=== PATIENT | female | born 2000 | race Caucasian/White ===

== ENCOUNTER 2022-01-29 14:41 | Emergency (ER) | payer OTHER, SELFPAY ==
--- NOTE | ~2022-01-29 | XR_ITS ---
EXAMINATION: XR chest 2V 01/29/2022 16:51 INDICATION: Shortness of breath PROCEDURE: 2 view chest COMPARISON: No prior studies for comparison. FINDINGS: The lungs are clear. The cardiomediastinal silhouette is within normal limits. There are no pleural effusions. There is no pneumothorax suspected. IMPRESSION: 1: NO ACUTE CARDIOPULMONARY DISEASE. Reviewed, dictated and finalized at location A.
--- NOTE | ~2022-01-29 | CT_ITS ---
EXAMINATION: CTA chest PE protocol DATE: 01/29/2022 19:20 CDT INDICATION: Elevated d-dimer. Chest pain and shortness of breath. Tachycardia. TECHNIQUE: Computed tomographic angiography (CTA) of the chest was performed with 100 mL Omnipaque-35 0 intravenous contrast. The dose-length product was 809.56 mGy-cm. Maximum intensity projection 3D-re constructions of the aorta and other arteries were constructed by the technologist on a separate work station. COMPARISON: None. FINDINGS: Heart size is normal. No significant pleural or pericardial effusion. No thoracic lymphaden opathy. The upper abdomen is unremarkable. Study is technically adequate without evidence for pulmona ry embolism. No endobronchial lesions. No pneumothorax. No focal airspace disease. Mild thoracic spon dylosis. IMPRESSION: 1. No acute cardiopulmonary disease. No evidence for pulmonary embolism. Reviewed, dictated and finalized at location A.
[2022-01-29 15:13] VITALS: BP 149/79; PULSE 98; RESP 20; TEMP 36.6; O2SAT 100
--- NOTE | 2022-01-29 16:41 | ECG_ITS ---
Measurements Intervals [place] Rate: 70 P: 37 IN: 121 QRS: 35 QRSD: 97 T: 29 QT: 377 QTc: 407 Interpretive Statements SINUS RHYTHM WITH SINUS ARRHYTHMIA BASELINE ARTIFACT- I, III, AVR, AVL, AVF, V1 NORMAL ECG NO PREVIOUS ECG AVAILABLE FOR COMPARISON Electronically Signed On 01-29-2022 21:07:33 CDT by Franck Donnelly D.O.
--- NOTE | 2022-01-29 16:42 | ED.SOB ---
HPI - SOB/Dyspnea General Chief Complaint: Shortness of Breath/Dyspnea Stated Complaint: sob Time Seen by Provider: 01/29/22 16:14 History of Present Illness HPI Narrative: 21-year-old female here for evaluation of shortness of breath over the past couple days. Patient states that she feels winded on minimal exertion, which is new for her. Additionally notes a slight discomfort in the center of her chest and feels lightheaded. She has never had a symptom like this in the past. She denies hormone use, recent surgery or long travel or trips, no hemoptysis, leg swelling or pain. Patient is previously healthy, denies past medical history. Review of Systems Review of Systems: Gen: Denies fevers or chills Eyes: Denies eye pain or visual change ENT: Denies congestion Respiratory: reports shortness of breath. CV: Denies chest pain or palpitations GI: Denies abdominal pain nausea, emesis or diarrhea denies burning, urgency, frequency or hematuria Musculoskeletal: Denies back pain or muscle pain Neuro: Denies numbness, tingling, weakness or focal weakness Skin: Denies rash Except as documented, all other systems reviewed and negative Exam Narrative: APPEARANCE: Well appearing, no pain in distress, well-nourished. Head: Normocephalic and atraumatic. EYES: PERRLA/EOMI, conjunctivae clear NOSE: No nasal drainage EARS: External ear normal in appearance THROAT: Oropharynx is clear. Mucous membranes are moist. NECK: Supple. No adenopathy, no masses. RESPIRATORY: Airway patent, respirations nonlabored. Clear to auscultation bilaterally, no rales, rhonchi, wheezing. CARDIOVASCULAR: Regular rate and rhythm without murmurs, rubs, or gallops. ABDOMINAL: Normoactive bowel sounds. Soft, nontender, nondistended. No rebound tenderness or guarding. MUSCULOSKELETAL: no calf tenderness. Extremities are warm and well-perfused. Moves all extremities well. No edema. NEURO: Normal speech. No focal neurologic deficits. SKIN: Skin is warm and dry. No rashes. PSYCHIATRIC: Normal affect/mood. Course Vital Signs Vital signs: Vital Signs Temperature 97.9 F 01/29/22 15:13 Pulse Rate 98 01/29/22 15:13 Respiratory Rate 20 01/29/22 15:13 Blood Pressure 149/79 H 01/29/22 15:13 Pulse Oximetry 100 01/29/22 15:13 Oxygen Delivery Room Air 01/29/22 15:13 Temperature 97.9 F 01/29/22 15:13 Pulse Rate 98 01/29/22 15:13 Respiratory Rate 20 01/29/22 15:13 Blood Pressure 149/79 H 01/29/22 15:13 Pulse Oximetry 100 01/29/22 15:13 Oxygen Delivery Room Air 01/29/22 19:01 MDM - SOB/Dyspnea MDM Narrative Medical decision making narrative: 21 year old female here for evaluation of SOB, chest pain and lightheadedness for the past day. Here she is nontoxic-appearing, her pulse is 98. Her heart and lungs are clear to auscultation. CXR is clear. EKG is non-ischemic. Troponin negative. Dimer slightly elevated; follow up CTA without evidence of PE. She has no leg swelling/pain to suggest DVT. She has a slight leukocytosis to 11.3 but patient's symptoms do not appear consistent with infection. This is likely an anxiety-type reaction as patient has many stressors in her life currently. No SI/HI. Encouraged her to follow up with her PCP this following week to discuss therapeutic options. Discussed return precautions and she voiced understanding. Lab Data Result diagrams: 01/29/22 17:02 01/29/22 17:02 Labs: Lab Results 01/29/22 01/29/22 01/29/22 Range/Units 17:02 17:02 17:02 WBC 11.3 H (4.5-10.0) K/mm3 RBC 5.06 (4.2-5.4) M/mm3 Hgb 14.7 (12.0-15.0) g/dL Hct 45.5 (37.0-47.0) % MCV 89.9 (80-100) fl MCH 29.1 (26-34) pg MCHC 32.3 (32-36) g/dl RDW 12.4 (11.5-14.5) % Plt Count 323 (150-375) k/mm3 MPV 11.1 H (7.4-10.4) fl Immature Gran % (Auto) 0.4 (0-0.5) % Neut % (Auto) 61.5 (45.5-73.1) % Lymph % (Auto) 28.2 (18.3-44.2) % [place] % (Auto) 8.
[2022-01-29 17:10] LABS: Basophils Absolute Auto 0.1 K/mm3 (0.0-0.1); Basophils Percent Auto 0.6 % (0.2-1.2); Eosinophils Absolute Auto 0.1 K/mm3 (0-0.3); Eosinophils Percent Auto 1.1 % (0-4.4); Hematocrit 45.5 % (37.0-47.0); Hemoglobin 14.7 g/dL (12.0-15.0); Immature Granulocyte Absolute 0.04 K/mm3 (0.00-0.031); Immature Granulocyte Percent A 0.4 % (0-0.5); Lymphocytes Absolute Auto 3.19 K/mm3 (0.9-3.2); Lymphocytes Percent Auto 28.2 % (18.3-44.2); Mean Corpuscular HGB Conc 32.3 g/dl (32-36); Mean Corpuscular Hemoglobin 29.1 pg (26-34); Mean Corpuscular Volume 89.9 fl (80-100); Mean Platelet Volume 11.1 fl (7.4-10.4); Monocytes Absolute Auto 0.9 K/mm3 (0.1-0.6); Monocytes Percent Auto 8.2 % (2.6-8.5); Neutrophils Percent Auto 61.5 % (45.5-73.1); Platelet Count Result 323 k/mm3 (150-375); Red Blood Count 5.06 M/mm3 (4.2-5.4); Red Cell Distribution Width 12.4 % (11.5-14.5); White Blood Count 11.3 K/mm3 (4.5-10.0)
[2022-01-29 17:24] LABS: D Dimer 0.68 ug/mL (<0.48)
[2022-01-29 17:35] LABS: Anion Gap 17 mmol/L (8-16); Blood Urea Nitrogen 13 mg/dL (7-17); Calcium 9.5 mg/dL (8.4-10.2); Carbon Dioxide 23 mmol/L (22-30); Chloride 103 mmol/L (98-107); Estimated CRCL calculation 95 ml/min; Estimated Glomerular Filt Rate > 60; Glucose 84 mg/dL (65-110); Potassium 3.9 mmol/L (3.4-5.0); Sodium 143 mmol/L (137-145)
[2022-01-29 19:00] LABS: Beta HCG Quantitative < 2.39 mIU/ML
[2022-01-29 19:41] LABS: Troponin I < 0.012 ng/mL (0.000-0.034)
== END 2022-01-29 19:54 | disposition home or self-care (01) ==
PROVIDERS: Physician Assistant; Emergency Provider Emergency Medicine; PCP Internal Medicine
DX: R42 Dizziness and giddiness (principal)
CPT/HCPCS: 36415; 71046; 71275; 80048; 81025; 84484; 84702; 85025; 85380; 93005; 99284; Q9967

== ENCOUNTER 2022-02-23 22:05 | Emergency (ER) | payer OTHER, SELFPAY ==
[2022-02-23 22:15] VITALS: BP 152/100; PULSE 69; RESP 20; TEMP 36.9; O2SAT 100
--- NOTE | 2022-02-23 22:57 | ED.EXTPRO ---
HPI - Extremity Problem General Chief complaint: Extremity Problem,Nontraumatic Stated complaint: Right leg pain Time Seen by Provider: 02/23/22 22:23 History of Present Illness HPI Narrative: Patient is a 21-year-old female who presents ER with cramping to her right calf. Ongoing over the last couple days. No worse today. Reports intermittent tingling in the foot. No trauma. No swelling. Was seen in the ER on 01/29/2022 and had an elevated D-dimer. At that time she had no lower extremity discomfort but did have some shortness of breath. CTA was negative for PE. Symptoms may have been attributed to anxiety. Patient reports she started having some tingling in her fingertips tonight which prompted her to come in. No chest pain or chest pressure or difficulty breathing. No syncope. Family member with history of PE and became concerned. Related Data Allergies Allergy/AdvReac Type Severity Reaction Status Date / Time No Known Allergies Allergy Verified 02/23/22 22:06 Review of Systems Review of Systems: All systems reviewed & are unremarkable except as noted in HPI and below Constitutional: Constitutional: Denies chills and Denies fever(s) Cardiovascular: Cardiovascular: Denies chest pain and Denies rapid heart rate Respiratory: Respiratory: Denies cough and Denies dyspnea Musculoskeletal: Musculoskeletal: Denies arthralgias and Denies joint swelling Comments: Right calf pain Neurologic: Denies syncope, Denies focal weakness and Denies numbness Comments: Tingling PMFSH Past Medical History Medical History (Updated 02/24/22 @ 01:06 by Kyle Martinez MD) Healthy female adult Surgical History Surgical History (Updated 02/23/22 @ 23:02 by Kyle Martinez MD) No pertinent past surgical history Social History Social History (Updated 02/23/22 @ 23:02 by Kyle Martinez MD) Smoking status: Never smoker Exam Narrative: GENERAL: Well-appearing, well-nourished, and in no acute distress. HEAD: Normocephalic, atraumatic. CHEST: Clear to auscultation. No respiratory distress. HEART: Regular rate and rhythm. Normal peripheral pulses. ABDOMEN: Soft, nontender, nondistended. EXTREMITIES: Normal range of motion. No edema. Negative Homans' sign. Patient reports positive carpal tunnel compression test bilaterally. SKIN: Warm, dry, no rash. NEURO: No focal deficits. Sharp touch intact in lower extremities as well as hands. Alert and oriented x3. PSYCH: Normal mood and affect. Course Course Emergency Course: Discussed case with Dr. Lamb. Discussed the patient received Lovenox and is getting ultrasound in the morning for which she should be looking out for the results. Verbalized he will ensure patient does not have a DVT but if she does we will start anticoagulation. Patient aware of this treatment plan. Vital Signs Vital signs: Vital Signs Temperature 98.4 F 02/23/22 22:15 Pulse Rate 69 02/23/22 22:15 Respiratory Rate 20 02/23/22 22:15 Blood Pressure 152/100 H 02/23/22 22:15 Pulse Oximetry 100 02/23/22 22:15 Oxygen Delivery Room Air 02/23/22 22:15 Temperature 98.4 F 02/23/22 22:15 Pulse Rate 88 02/24/22 01:51 Respiratory Rate 18 02/24/22 01:51 Blood Pressure 138/77 02/24/22 01:51 Pulse Oximetry 98 02/24/22 01:51 Oxygen Delivery Room Air 02/23/22 22:15 MDM - Extremity (Nontraumatic) Lab Data Result diagrams: 02/23/22 23:55 02/23/22 23:55 Labs: Lab Results 02/23/22 02/23/22 02/23/22 Range/Units 23:55 23:55 23:58 WBC 9.9 (4.5-10.0) K/mm3 RBC 4.97 (4.2-5.4) M/mm3 Hgb 14.4 (12.0-15.0) g/dL Hct 44.0 (37.0-47.0) % MCV 88.5 (80-100) fl MCH 29.0 (26-34) pg MCHC 32.7 (32-36) g/dl RDW 12.3 (11.5-14.5) % Plt Count 305 (150-375) k/mm3 MPV 10.9 H (7.4-10.4) fl Immature Gran % (Auto) 0.3 (0-0.5) % Neut % (Auto) 58.0 (45.5-73.1) % Lymph % (Auto) 33.3
[2022-02-24 00:05] LABS: Basophils Absolute Auto 0.1 K/mm3 (0.0-0.1); Basophils Percent Auto 0.7 % (0.2-1.2); Eosinophils Absolute Auto 0.1 K/mm3 (0-0.3); Hemoglobin 14.4 g/dL (12.0-15.0); Immature Granulocyte Absolute 0.03 K/mm3 (0.00-0.031); Immature Granulocyte Percent A 0.3 % (0-0.5); Lymphocytes Percent Auto 33.3 % (18.3-44.2); Mean Corpuscular HGB Conc 32.7 g/dl (32-36); Mean Corpuscular Volume 88.5 fl (80-100); Mean Platelet Volume 10.9 fl (7.4-10.4); Monocytes Absolute Auto 0.7 K/mm3 (0.1-0.6); Monocytes Percent Auto 6.7 % (2.6-8.5); Neutrophils Absolute Auto 5.8 K/mm3 (1.3-6.7); Platelet Count Result 305 k/mm3 (150-375); Red Blood Count 4.97 M/mm3 (4.2-5.4); Red Cell Distribution Width 12.3 % (11.5-14.5); White Blood Count 9.9 K/mm3 (4.5-10.0)
[2022-02-24 00:17] LABS: INR 1.1; Prothrombin Time 14.1 Seconds (11.1-14.7)
[2022-02-24 00:18] LABS: Partial Thromboplastin Time 33.5 SECONDS (22.3-36.8)
[2022-02-24 00:23] LABS: D Dimer 0.83 ug/mL (<0.48)
[2022-02-24 00:25] LABS: Alanine Aminotransferase 30 U/L (6-35); Albumin Level 4.8 g/dL (3.5-5.1); Alkaline Phosphatase 53 U/L (38-126); Anion Gap 14 mmol/L (8-16); Aspartate Amino Transferase 27 U/L (14-36); Bilirubin,Total 0.4 mg/dL (0.2-1.3); Blood Urea Nitrogen 14 mg/dL (7-17); Calcium 9.4 mg/dL (8.4-10.2); Carbon Dioxide 27 mmol/L (22-30); Chloride 99 mmol/L (98-107); Estimated CRCL calculation 102 ml/min; Estimated Glomerular Filt Rate > 60; Glucose 103 mg/dL (65-110); Potassium 3.8 mmol/L (3.4-5.0); Sodium 140 mmol/L (137-145)
[2022-02-24] MEDS: ENOXAPARIN 120 MG/0.8 ML SYRINGE 111 MG SUB-Q (01:28)
[2022-02-24 01:51] VITALS: BP 138/77; PULSE 88; RESP 18; O2SAT 98
== END 2022-02-24 01:54 | disposition home or self-care (01) ==
PROVIDERS: Emergency Provider Emergency Medicine; PCP Internal Medicine
DX: M79.661 Pain in right lower leg (principal)
CPT/HCPCS: 36415; 80053; 85025; 85380; 85610; 85730; 96372; 99283; J1650

== ENCOUNTER 2022-02-24 06:50 | Outpatient (CLI) | payer OTHER, SELFPAY ==
--- NOTE | ~2022-02-24 | US_ITS ---
EXAMINATION: US venous doppler LE RT DATE: 02/24/2022 07:28 INDICATION: Right lower limb pain TECHNIQUE: Grayscale ultrasound images without and with compression and Doppler ultrasound images of the right lower extremity veins were obtained. COMPARISON: None. FINDINGS: The visualized portions of right common femoral vein, profunda (deep) femoral vein, femoral vein, pop liteal vein, peroneal trunk, posterior tibial veins, peroneal veins, gastrocnemius vein and greater s aphenous vein outflow are patent. IMPRESSION: 1. No deep venous thrombosis in the right lower limb. Reviewed, dictated and finalized at location A.
== END 2022-02-24 06:51 | disposition home or self-care (01) ==
PROVIDERS: PCP Internal Medicine; Visit Provider Internal Medicine
DX: M79.661 Pain in right lower leg (principal)
CPT/HCPCS: 93971

== ENCOUNTER 2022-03-02 09:39 | Outpatient (CLI) | payer OTHER, SELFPAY ==
--- NOTE | ~2022-03-02 | XR_ITS ---
EXAMINATION: XR tibia fibula RT 2V DATE: 03/02/2022 09:55 INDICATION: Right calf pain. TECHNIQUE: 2 views of right tibia and fibula on 4 radiographs were obtained. COMPARISON: None. FINDINGS: Bone alignment is normal. No fracture. Joint spaces are well maintained. IMPRESSION: 1. Normal right tibia and fibula. Reviewed, dictated and finalized at location A.
== END 2022-03-02 09:40 ==
PROVIDERS: PCP Internal Medicine; Visit Provider Internal Medicine
DX: M79.604 Pain in right leg (principal)
CPT/HCPCS: 73590

== ENCOUNTER 2023-08-25 09:08 | Outpatient (CLI) | payer SELFPAY ==
--- NOTE | ~2023-08-25 | XR_ITS ---
Lumbosacral Spine: AP and lateral views Clinical History: Pain Findings: The normal lordotic curve is maintained. The vertebral bodies and posterior elements are i ntact. The intervertebral disc spaces are preserved. The sacroiliac joints are normally outlined. Impression: No significant abnormality. Reviewed, dictated and finalized at [facility]. Impression: No significant abnormality.
== END 2023-08-25 09:09 ==
PROVIDERS: PCP Internal Medicine; Visit Provider Internal Medicine
DX: M54.50 Low back pain, unspecified (principal)
CPT/HCPCS: 72100

== ENCOUNTER 2024-05-10 11:15 | Outpatient (CLI) | payer OTHER, SELFPAY ==
--- NOTE | ~2024-05-10 | US_ITS ---
EXAMINATION TYPE: US breast BI limited COMPARISON: NONE REASON FOR STUDY: ASYMMETRY TECHNIQUE: Targeted sonographic evaluation of the bilateral breasts was performed. INTERPRETATION: Targeted scanning of the bilateral areas of concern was performed, including right breast 9:00-3:00 p ositions, and left breast 1:00-2:00 positions. No significant solid or cystic lesion identified in the region scanned. No significant abnormality se en in the region scanned. IMPRESSION: No significant abnormality seen in the regions scanned. BI-RADS CATEGORY: BI-RADS 1: Normal. Reviewed, dictated and finalized at location M. [employer]ED ATT[employer]NEYS
== END 2024-05-10 11:16 | disposition home or self-care (01) ==
PROVIDERS: PCP Internal Medicine; Visit Provider Nurse Practitioner Women's Health
DX: N64.59 Other signs and symptoms in breast (principal)
CPT/HCPCS: 76642

== ENCOUNTER 2024-11-02 16:15 | Emergency (ER) | payer OTHER, SELFPAY ==
[2024-11-02] VITALS (14 sets, daily range): BP systolic 116–161; BP diastolic 61–97; PULSE 67–89; RESP 16–18; TEMP 36.6–36.7; O2SAT 97–100
--- NOTE | ~2024-11-02 | CT_ITS ---
CLINICAL INDICATION: Right lower quadrant pain COMPARISON: None. TECHNIQUE: Multiple contiguous axial images of the abdomen and pelvis were performed following the ad ministration of with 100 mL Omnipaque-350 intravenous contrast The dose-length product (DLP) was 1461.15 mGy-cm. Automated exposure control and iterative reconstruction technique were employed. FINDINGS/OBSERVATIONS: Visualized lower thorax: The bilateral lung bases are clear. The heart is of normal size, without pericardial effusion. Small hiatal hernia is present. Liver: The liver demonstrates homogeneous enhancement and is not enlarged. Gallbladder and biliary system: The gallbladder is distended, and otherwise unremarkable. Pancreas: The pancreas enhances homogeneously without ductal dilatation. Spleen: The spleen enhances homogeneously and is not enlarged. Kidneys: The bilateral kidneys enhance symmetrically without hydronephrosis or renal calculi. Adrenal glands: Unremarkable. Gastrointestinal tract: Fecal stasis within the colon. Appendix: The appendix is not definitively visualized. However, no pericecal inflammatory change is identified suggest the presence of acute appendicitis. Vasculature: Unremarkable. Lymph nodes: No pathologically enlarged or morphologically suspicious lymph nodes within the retroperitoneum or at the root of the mesentery. Pelvic structures: The bladder is only minimally distended, and otherwise unremarkable. The uterus is anteverted and anteflexed Body wall and musculoskeletal: Small fat-containing umbilical hernia. No significant degenerative disease within the lower thoracic or lumbosacral spine. IMPRESSION: No acute pathology within the lower chest, abdomen or pelvis, as detailed above. Reviewed, dictated and finalized at location A. IMPRESSION: No acute pathology within the lower chest, abdomen or pelvis, as detailed above .
--- NOTE | ~2024-11-02 | US_ITS ---
EXAM: PELVIC ULTRASOUND HISTORY: RLQ pain, hx PCOS, r/o torsion COMPARISON: Reference is made to contrast-enhanced CT examination of the abdomen and pelvis performed approximately 1 hour earlier. FINDINGS: UTERUS: 8.2 x 2.6 x 4.3 cm. The uterus is anteverted and anteflexed. The endometrial complex measures 3 mm. RIGHT OVARY: The right ovary is unremarkable in echogenicity and size measuring 3.1 x 1.7 x 1.8 cm. Dopplerable flow is identified. LEFT OVARY: The left ovary is unremarkable in echogenicity and size measuring 2.5 x 1.5 x 2.3 cm Dopplerable flow is identified. No free fluid is identified within the pelvis. IMPRESSION: Unremarkable sonographic evaluation of the pelvis, as detailed above. Reviewed, dictated and finalized at location A.
[2024-11-02 19:50] LABS: Basophils Absolute Auto 0.1 K/mm3 (0.0-0.1); Basophils Percent Auto 0.4 % (0.2-1.2); Eosinophils Absolute Auto 0.1 K/mm3 (0-0.3); Eosinophils Percent Auto 0.9 % (0-4.4); Hematocrit 44.6 % (37.0-47.0); Hemoglobin 14.3 g/dL (12.0-15.0); Immature Granulocyte Absolute 0.06 K/mm3 (0.00-0.031); Immature Granulocyte Percent A 0.5 % (0-0.5); Lymphocytes Absolute Auto 3.41 K/mm3 (0.9-3.2); Lymphocytes Percent Auto 26.7 % (18.3-44.2); Mean Corpuscular HGB Conc 32.1 g/dl (32-36); Mean Corpuscular Hemoglobin 27.9 pg (26-34); Mean Corpuscular Volume 87.1 fl (80-100); Mean Platelet Volume 10.5 fl (7.4-10.4); Monocytes Absolute Auto 0.8 K/mm3 (0.1-0.6); Monocytes Percent Auto 6.5 % (2.6-8.5); Neutrophils Absolute Auto 8.3 K/mm3 (1.3-6.7); Platelet Count Result 331 k/mm3 (150-375); Red Blood Count 5.12 M/mm3 (4.2-5.4); Red Cell Distribution Width 12.5 % (11.5-14.5); White Blood Count 12.8 K/mm3 (4.5-10.0)
[2024-11-02 20:02] LABS: Alanine Aminotransferase 23 U/L (6-35); Albumin Level 4.6 g/dL (3.5-5.1); Alkaline Phosphatase 50 U/L (38-126); Anion Gap 13 mmol/L (4-12); Aspartate Amino Transferase 30 U/L (14-36); Bilirubin,Total 0.3 mg/dL (0.2-1.3); Blood Urea Nitrogen 13 mg/dL (7-17); Calcium 9.7 mg/dL (8.4-10.2); Carbon Dioxide 24 mmol/L (22-30); Chloride 100 mmol/L (98-107); Estimated CRCL calculation 93 ml/min; Estimated Glomerular Filt Rate > 60; Glucose 88 mg/dL (65-110); Lipase 95 U/L (23-300); Potassium 4.2 mmol/L (3.4-5.0); Sodium 137 mmol/L (137-145); Total Protein 8.9 g/dL (6.3-8.2)
[2024-11-02 20:41] LABS: BEDSIDEPREGUCG Negative (Negative)
[2024-11-02 20:44] LABS: Add Urine Microscopic? YES; Appearance Urine Clear (Clear); Bacteria Urine None Seen /hpf; Bilirubin Urine Negative (Negative); Blood Urine Negative (Negative); Color Urine Yellow (Yellow); Glucose Urine UA Negative (Negative); Ketones Urine Trace mg/dL (Negative); Leukocyte Esterase Ur Trace LEU/UL (Negative); Nitrate Urine Negative (Negative); Non Pathogenic Casts 0-2; Protein Urine Trace mg/dL (Negative); RBC Urine 0-2 /hpf (0-2); Specific Grav Ur 1.019 (1.001-1.035); Squamous Epithelial Cell Urine Occasional /hpf (Few); Urobilinogen Urine 0.2 mg/dL (<2.0); WBC Urine 0-5 /hpf (0-3)
[2024-11-02] MEDS: ACETAMINOPHEN 500 MG TABLET 1000 MG PO (21:17)
--- NOTE | 2024-11-02 21:32 | ED_ITS ---
HPI - Abdominal Pain General Chief Complaint: Abdominal Pain Stated Complaint: abd cramping and pain Time Seen by Provider: 11/02/24 20:30 Source: patient Mode of arrival: ambulatory Limitations: no limitations History of Present Illness HPI narrative: Patient is a 23-year-old female who presents the ED with report of right lower abdominal pain. Patient reports having persistent pain over the past 3 days. States pain has been worsening. Has intermittently spread to her left lower abdomen. Has been taking Tylenol and using heating pad for the pain without improvement. Reports nausea, vomiting. Denies fevers, diarrhea, constipation, dysuria, hematuria. Has history of PCOS, but denies ever having issues with ovarian cysts in the past. Related Data Allergies Allergy/AdvReac Type Severity Reaction Status Date / Time No Known Allergies Allergy Verified 11/02/24 17:02 Review of Systems 2 Review of Systems: All systems reviewed & are unremarkable except as noted in HPI. All systems reviewed & are unremarkable except as noted in HPI and below PMFSH Past Medical History Medical History Healthy female adult Surgical History Surgical History No pertinent past surgical history Social History Social History Smoking status: Never smoker Exam 2 Narrative: GENERAL: Well appearing, morbidly obese with BMI of 46.7, non-toxic, in no acute distress. HEAD: Normocephalic, atraumatic. RESPIRATORY: Airway patent, respirations nonlabored. Clear to auscultation bilaterally, no rales, rhonchi, wheezing. CARDIOVASCULAR: Regular rate and rhythm without murmurs, rubs, or gallops. ABDOMINAL: Soft, mild diffuse tenderness throughout abdomen, more focal tenderness in right lower quadrant, no rebound, nondistended. Normoactive BS. MUSCULOSKELETAL: Moves all extremities. No gross deformities. SKIN: Warm, dry, normal color. NEURO: A&O X3. Speech clear. PSYCHIATRIC: Appropriate mood and affect. Normal interaction. Course Vital Signs Vital signs: Vital Signs Temperature 98.0 F 11/02/24 17:03 Pulse Rate 75 11/02/24 17:03 Respiratory Rate 16 11/02/24 17:03 Blood Pressure 149/89 H 11/02/24 17:03 Pulse Oximetry 100 11/02/24 17:03 Oxygen Delivery Room Air 11/02/24 17:03 Temperature 97.9 F 11/02/24 22:23 Pulse Rate 67 11/02/24 22:23 Respiratory Rate 16 11/02/24 22:23 Blood Pressure 116/61 11/02/24 22:23 Pulse Oximetry 100 11/02/24 22:23 Oxygen Delivery Room Air 11/02/24 20:35 MDM - Abdominal Pain MDM Narrative Medical decision making narrative: Patient presented to ED with 3 day history of right lower abdominal pain. History of PCOS. Vital signs are stable upon arrival. Patient in no acute distress. Did not want anything stronger for pain than Tylenol. This was given in the ED. CBC with blood cell count of 12.8. CMP with minimal anion gap of 13. Otherwise stable electrolytes. Stable kidney function. UA with trace ketones, trace leuk esterase, no other signs of infection. CT scan of abdomen/pelvis was obtained and without acute findings. No abnormalities noted of appendix. Will obtain pelvic ultrasound to rule out ovarian etiology. Pelvic ultrasound was obtained and also unremarkable. No ovarian cyst identified. Ovaries are unremarkable. Normal Doppler blood flow to both ovaries. No evidence of torsion. Discussed lab and imaging findings, overall reassuring workup with patient. Feel safe for discharge home at this time. Discussed possibility of musculoskeletal etiology, gas pains. Recommended that patient continue Tylenol/ibuprofen as needed, follow-up with PCP for further evaluation. Given return precautions. Discharged in stable condition. Medical Records Attestation: I reviewed the patient's medical records. Lab Data Attestation: I reviewed the patient's lab results. 11/02/24 19:40 11/02/24 19:40 Labs: Lab Results 11/02/24 11/02/24 11/02/24 Range/Units 19:40 20:34 20:39 WBC 12.8 H (4.5-10.0) K/mm3 RBC 5.12 (4.2-5.4) M/mm3 Hgb 14.3 (12.0-15.0) g/dL Hct 44.6 (37.0-47.0) % MCV 87.1 (80-100) fl MCH 27.9 (26-34) pg MCHC 32.1 (32-36) g/dl RDW 12.5 (11.5-14.5) % Plt Count 331 (150-375) k/mm3 MPV 10.5 H (7.4-10.4) fl Immature Gran % (Auto) 0.5 (0-0.5) % Neut % (Auto) 65.0 (45.5-73.1) % Lymph % (Auto) 26.7 (18.3-44.2) % [place] % (Auto) 6.5 (2.6-8.5) % Eos % (Auto) 0.9 (0-4.4) % Baso % (Auto) 0.4 (0.2-1.2) % Lymph # (Auto) 3.41 H (0.9-3.2) K/mm3 [place] # (Auto) 0.8 H (0.1-0.6) K/mm3 Eos # (Auto) 0.1 (0-0.3) K/mm3 Baso # (Auto) 0.1 (0.0-0.1) K/mm3 Abs Immat Gran (auto) 0.06 H (0.00-0.031) K/mm3 Absolute Neuts (auto) 8.3 H (1.3-6.7) K/mm3 Absolute Nucleated RBC 0.000 (0.0-0.012) K/mm3 Nucleated RBC % 0.0 (0.0-0.2) % Sodium 137 (137-145) mmol/L Potassium 4.2 (3.4-5.0) mmol/L Chloride 100 (98-107) mmol/L Carbon Dioxide 24 (22-30) mmol/L Anion Gap 13 H (4-12) mmol/L BUN 13 (7-17) mg/dL Creatinine 0.99 (0.7-1.0) mg/dL Estim Creat Clear Calc 93 ml/min Estimated GFR > 60 (59 - ) Glucose 88 (65-110) mg/dL Calcium 9.7 (8.4-10.2) mg/dL Total Bilirubin 0.3 (0.2-1.3) mg/dL AST 30 (14-36) U/L ALT 23 (6-35) U/L Alkaline Phosphatase 50 (38-126) U/L Total Protein 8.9 H (6.3-8.2) g/dL Albumin 4.6 (3.5-5.1) g/dL Lipase 95 (23-300) U/L Urine Color Yellow (Yellow) Urine Appearance Clear (Clear) Urine pH 6.0 (5.0-9.0) Ur Specific [place] 1.019 (1.001-1.035) Urine Protein Trace (Negative) mg/dL Urine Glucose (UA) Negative (Negative) mg/dL Urine Ketones Trace H (Negative) mg/dL Ur Blood (Man) Negative (Negative) Urine Nitrate Negative (Negative) Urine Bilirubin Negative (Negative) Urine Urobilinogen 0.2 (<2.0) mg/dL Leukocyte Esterase Rfl Trace H (Negative) RACHEL/UL Urine RBC 0-2 (0-2) /hpf Urine WBC 0-5 (0-3) /hpf Ur Squamous Epith Cells Occasional (Few) /hpf Urine Bacteria None seen /hpf Urine Casts 0-2 POC Urine HCG, Qual Negative (Negative) Imaging Data Attestation: I personally reviewed and interpreted this imaging study as follows: Radiologist's impression: ITS Impressions Abdomen/Pelvis CT 11/02/24 21:40 IMPRESSION: No acute pathology within the lower chest, abdomen or pelvis, as detailed above. Pelvis Ultrasound 11/02/24 22:58 IMPRESSION: Unremarkable sonographic evaluation of the pelvis, as detailed above. Discharge Plan Discharge Clinical Impression: Right lower quadrant abdominal pain Patient Disposition: Home Condition: Stable Instructions: Antibiotic Form, Abdominal Pain (ED) Additional Instructions: Your workup here was reassuring. Continue Tylenol/ibuprofen as needed for pain. Stay well hydrated. Follow-up with your primary care doctor for further evaluation. Return to the ED if you experience worsening severe pain, unable to keep down food or drink, persistent fevers, or any other symptoms of concern. Patient Language: Mongolian Follow-up/Referrals: Adonis,MD Pascual [Primary Care Provider] - Time of Disposition: 23:20
== END 2024-11-02 23:55 | disposition home or self-care (01) ==
PROVIDERS: Emergency Medicine; Emergency Provider Physician Assistant; PCP Internal Medicine
DX: R10.31 Right lower quadrant pain (principal)
CPT/HCPCS: 36415; 74177; 76856; 80053; 81001; 81025; 83690; 85025; 99284; A9270; Q9967

== ENCOUNTER 2025-01-30 09:14 | Outpatient (CLI) | payer OTHER, SELFPAY ==
--- NOTE | ~2025-01-30 | US_ITS ---
EXAMINATION: US pelvic complete w TV, 01/30/2025 9:45 CDT HISTORY: PELVIC PAIN Comparison: None Technique: Conte-scale and color Doppler images were obtained. Findings: Uterus: Uterus anteverted 6.4 x 3.3 x 4.2 cm. . Endometrium 6.5 mm. Right Ovary:Right ovary 2 x 2 0.3 x 1.2 x 1.6 cm, no adnexal mass, normal flow. Left Ovary: Left ovary 2.7 x 1.8 x 2.3 cm, no adnexal mass, abnormal flow Free Fluid: None Impression: No etiology to explain patient's pain Reviewed, dictated and finalized at location A. Impression: No etiology to explain patient's pain
--- OUTSIDE RECORDS SUMMARY | 2025-01-30 10:01 | XMS_ITS | Clinical Summary ---
Author Organization [facility] Address [address] [place] [address] Care Team Providers Care Inpatient Nursing Aide Name Role Phone Haresh Pruitt MD [phone] Social History Tobacco Use Types Packs/Day Years Used Date Smoking Tobacco: Never Assessed Comments Unknown Sex and Gender Information Value Date Recorded Sex Assigned at Not on file Legal Sex Female 4:50 PM CDT Gender Identity Not on file Sexual Orientation Not on file Plan of Treatment Health Maintenance Due Date Last Done Comments Hepatitis C Virus (HCV) Screening 1998 Human Papillomavirus (HPV) Immunization (1 - 3-dose series) 2013 Pap Smear 12/09/2019 Influenza Immunization (#1) 01/07/202501/2023, 01/21/2022, 03/06/2021, Additional history exists SARS-COV-2 Immunization ( season) 2025 12/12/2020, 11/21/2020 Respiratory Syncytial Virus (RSV) Immunization (Adult) (1 - 1-dose 75+ series) 2073 Pneumococcal Immunization Combined Aged Out 04/04/2000, 12/11/1999 No longer eligibl e based on patient's age to complete this topic Hepatitis B Immunization Completed 004, 04/04/2000, 09/10/1999, Additional history exists TdaP Immunization Completed 12/15/2009 Meningococcal Immunization (ACWY) Completed 02/02/2016, 08/09/2014 Rotavirus Immunization Aged Out No lo nger eligible based on patient's age to complete this topic Insurance [place] Care Teams Inpatient Nursing Aide Relationship Specialty Start Date End Date Haresh Pruitt MD [address] [place] [address] [place] [address] PCP - General Family Medicine 02/24/24
--- OUTSIDE RECORDS SUMMARY | 2025-01-30 10:01 | XMS_ITS | Clinical Summary ---
Author Organization [facility] Address [address] [place] [address] Care Team Providers Care Third Helper Name Role Phone Haresh Pruitt MD Primary Care Provi leanne Allergies No known active allergies Medications albuterol HFA (PROVENTIL HFA,VENTOLIN HFA,PROAIR HFA) 90 mcg/actuation inhaler Active cyclobenzaprine (FLEXERIL) 10 mg tabletIndicatio ns:Midline low back pain with right-sided sciatica, unspecified chronicity Take 1 tablet (10 mg total) by mouth 2 (two) times a day as needed (Take as directed to relax muscles) Collaborating physician Ousmane Candelaria MD 20 tablet 4 Active naproxen (NAPROSYN) 500 mg tablet Take 1 tablet (500 mg total) by mouth 2 (two) times a day with meals 30 tablet 4 Active spironolactone (ALDACTONE) 100 mg tablet Take 1 tablet (100 mg total) by mouth daily 5 Active [place] Fe 05/28, 28, 1 mg-20 mcg (21)/75 mg (7) per tablet Take 1 tablet by mouth daily 5 Active metFORMIN XR (GLUCOPHAGE XR) 500 mg 24 hr tablet Take 1 tablet (500 mg total) by mouth daily 5 Active famotidine (PEPCID) 20 mg tablet 5 Active Active Problems Problem Noted Date Diagnosed Date Midline low back pain with right-sided sciatica 11/14/2023 Encounters Date Type Department Care Team Description 12/04/2024 10:30 AM CDT Office Visit [facility] [address] [address] Michele Owusu II, MD Syncope, unspecified syncope type (Primary Dx); AMBROSE (obstructive sleep apnea); Obesity, class 3 (E66.813); Body mass index [BMI] 45.0-49.9, adult (Z68.42) 12/03/2024 Telephone [facility] [address] [address] Michele Owsuu II, MD from Last 3 Months Social History Tobacco Use Types Packs/Day Years Used Date Smoking Tobacco: Never Smokeless Tobacco: Never Tobacco Cessation:Counseling Given: Not Answered Personal Safety Answer Date Recorded Have you ever been in or are you currently in a harmful physical or emotional relationship or is someone making you feel afraid or unsafe? 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 Gender Identity Not on file Sexual Orientation Not on file Obstetrics History Last Filed Vital Signs Vital Sign Reading Time Taken Comments Blood Pressure 120/80 12/04/2024 10:55 AM CDT Pulse 87 12/04/2024 10:55 AM CDT Temperature 36.8 C (98.2 F) 12/16/2023 7:10 PM CDT Respiratory Rate 17 12/04/2024 10:55 AM CDT Oxygen Saturation 98% 12/04/2024 10:55 AM CDT Inhaled Oxygen Concentration - - Weight 116.1 kg (256 lb) 12/04/2024 10:55 AM CDT Height 157.5 cm (5' 2) 12/04/2024 10:55 AM CDT Body Mass Index 46.82 12/04/2024 10:55 AM CDT Plan of Treatment Health Maintenance Due Date Last Done Comments Cervical Cancer Screening 1998 Depression Screening 1998 Hepatitis C Screening 1998 HPV Vaccines (1 - 3-dose series) 2013 Regular Well Visit/Exam 18-64 2016 DTaP/Tdap/Td Vaccine (7 - Td or Tdap) 12/16/2019 12/15/2009, 09/05/2003, 06/13/2000, Additional history exists Influenza Vaccine (#1) 2025 , 01/15/2023, 01/21/2022, Additional history exists Pneumococcal vaccine <65 Completed 04/04/2000, 08/1999 Hepatitis B Screening Completed 09/05/2003 , 04/04/2000, 09/10/1999, Additional history exists Varicella Vaccines Completed 12/15/2009, 12/11/1999 Insurance Care Teams Third Helper Relationship Specialty Start Date End Date Haresh Pruitt MD PCP - General Family Medicine 12/22/23
== END 2025-01-30 09:15 | disposition home or self-care (01) ==
DX: R10.2 Pelvic and perineal pain (principal)
CPT/HCPCS: 76830; 76856

== ENCOUNTER 2025-02-11 12:54 | Emergency (ER) | payer OTHER, SELFPAY ==
--- NOTE | ~2025-02-11 | CT_ITS ---
CTA CHEST CLINICAL HISTORY: SOB, leg pain . COMPARISON: Chest x-ray today CTA chest 01/29/2022 TECHNIQUE: Helical CTA performed from thoracic inlet to upper abdomen IV contrast information not listed in PACS Coronal, sagittal reformats. Multiplanar MIPS CT images acquired with automatic exposure control for dose reduction DLP: 807 mGy-cm FINDINGS: Respiratory motion artifact. Pulmonary arteries: No PE. Thoracic Aorta: No dissection or aneurysm. Heart/pericardium: Unremarkable. RV/LV ratio: Normal. Lungs/Pleura: Clear. Tracheobronchial tree: Patent. Nodes: No enlarged nodes. Bones: No acute bony abnormality. Soft tissues: Unremarkable. Visualized upper abdomen: Hepatomegaly, with steatosis. Diverticulosis. IMPRESSION: 1. No PE or other acute cardiopulmonary findings. Reviewed, dictated and finalized at location R.
--- NOTE | ~2025-02-11 | US_ITS ---
EXAMINATION: US venous doppler LE RT, 02/11/2025 14:00 CDT HISTORY: Y Comparison: None Technique: Conte-scale and color Doppler images were attempted of the lower saphenofemoral junction, common femoral vein,superficial femoral vein, proximal deep femoral vein, proximal deep femoral vein, popliteal vein and posterior tibial veins. Findings: Deep Venous System:Normal flow, augmentation and compressibility. No echogenic thrombus identified. The contralateral saphenofemoral junction appears unremarkable. Superficial Venous SystemNo superficial thrombophlebitis. Soft tissues: Soft tissues are unremarkable. Impression: Negative for DVT. Reviewed, dictated and finalized at location P. Impression: Negative for DVT.
--- NOTE | ~2025-02-11 | XR_ITS ---
EXAMINATION: XR chest 2V, 02/11/2025 13:53 CDT HISTORY: dyspnea COMPARISON: No comparisons available. Technique: 2 views obtained. Findings: The lungs are clear, no effusion. No pneumothorax. Heart is normal size. Mediastinal and hilar contours are within normal limits. Bony thorax no acute abnormality. Impression: No acute cardiopulmonary abnormality. Reviewed, dictated and finalized at location P. Impression: No acute cardiopulmonary abnormality.
--- NOTE | 2025-02-11 13:05 | ED.SOB ---
HPI - SOB/Dyspnea General Chief Complaint: Shortness of Breath/Dyspnea <Melecio Burk APRN - Last Filed: 02/11/25 13:11> Stated Complaint: Shortness of breath x 2 days, leg swollen <Melecio Burk APRN - Last Filed: 02/11/25 13:11> Time Seen by Provider: 02/11/25 14:41 <Melecio Burk APRN - Last Filed: 02/11/25 13:11> Focused HPI: GENERAL: Well-appearing, well-nourished, and in no acute distress. HEAD: Normocephalic, atraumatic. CHEST: Clear to auscultation. No respiratory distress. HEART: Regular rate and rhythm. NEURO: Alert and oriented x3. Patient screened in triage and initial orders placed. Additional care and disposition to be based upon diagnostic testing and treatment. 24-year-old female presents ER complaining of swelling and pain to right leg that began yesterday. States the swelling has improved. Patient also complaining of exertional dyspnea. No recent URI. Plan is labs, imaging. <Melecio Burk APRN - Last Filed: 02/11/25 13:11> History of Present Illness HPI Narrative: Agree with HPI <Kyel Martinez MD - Last Filed: 02/11/25 15:21> Related Data Home Medications: Home Medications ?Medication ?Instructions ?Recorded ?Confirmed ?Last Taken ?Type metformin 500 mg tablet 500 mg PO DAILY 12/31/24 12/31/24 Unknown History spironolactone 100 mg tablet 100 mg PO DAILY 12/31/24 12/31/24 Unknown History <Melecio Burk APRN - Last Filed: 02/11/25 13:11> Allergies/Adverse Reactions: Allergies Allergy/AdvReac Type Severity Reaction Status Date / Time No Known Allergies Allergy Verified 02/11/25 12:55 <Melecio Burk APRN - Last Filed: 02/11/25 13:11> Review of Systems Review of Systems: All systems reviewed & are unremarkable except as noted in HPI and below <Kyle Martinez MD - Last Filed: 02/11/25 15:21> Constitutional: Constitutional: Reports no additional constitutional complaints <Kyle Martinez MD - Last Filed: 02/11/25 15:21> ENT: Reports system reviewed and no additional complaints, except as documented <Kyle Martinez MD - Last Filed: 02/11/25 15:21> Cardiovascular: Cardiovascular: Reports no additional cardiovascular complaints <Kyle Martinez MD - Last Filed: 02/11/25 15:21> Respiratory: Respiratory: Reports no additional respiratory complaints <Kyle Martinez MD - Last Filed: 02/11/25 15:21> Gastrointestinal: Gastrointestinal: Reports no additional gastrointestinal complaints <Kyle Martinez MD - Last Filed: 02/11/25 15:21> [facility] Past Medical History Medical History: Medical History Healthy female adult <Melecio Burk, WATER QUALITY ASSISTANT - Last Filed: 02/11/25 13:11> Surgical History Surgical History: Surgical History No pertinent past surgical history <Melecio Burk, WATER QUALITY ASSISTANT - Last Filed: 02/11/25 13:11> Social History Social History: Social History Smoking status: Never smoker <Melecio Burk, WATER QUALITY ASSISTANT - Last Filed: 02/11/25 13:11> Exam Narrative: GENERAL: Well-appearing, obese, and in no acute distress. HEAD: Normocephalic, atraumatic. ENT: Mucous membranes moist. CHEST: Clear to auscultation. No respiratory distress. HEART: Regular rate and rhythm. Normal peripheral pulses. ABDOMEN: Soft, nontender, nondistended. EXTREMITIES: Normal range of motion. No edema. Negative Homans sign. SKIN: Warm, dry, no rash. NEURO: Alert and oriented x3. PSYCH: Normal mood and affect. <Kyle Martinez MD - Last Filed: 02/11/25 15:21> Course Course Emergency Course: No DVT or PE. CBC with white count of 10.1, with CMP normal, urinalysis normal as well. Appropriate for discharge home. <Kyle Martinez MD - Last Filed: 02/11/25 15:21> Vital Signs Vital signs: Vital Signs Temperature 97.7 F 02/11/25 13:06 Pulse Rate 80 02/11/25 13:06 Respiratory Rate 17 02/11/25 13:06 Blood Pressure 142/94 H 02/11/25 13:06 Pulse Oximetry 100 02/11/25 13:06 Oxygen Delivery Room Air 02/11/25 13:06 Temperature 97.7 F 02/11/25 13:06 Pulse Rate 72 02/11/25 14:39 Respiratory Rate 20 02/11/25 14:37 Blood Pressure 94/57 L 02/11/25 14:37 Pulse Oximetry 100 02/11/25 14:39 Oxygen Delivery Room Air 02/11/25 14:39 <Melecio Burk WATER QUALITY ASSISTANT - Last Filed: 02/11/25 13:11> Vital Signs Temperature 97.7 F 02/11/25 13:06 Pulse Rate 80 02/11/25 13:06 Respiratory Rate 17 02/11/25 13:06 Blood Pressure 142/94 H 02/11/25 13:06 Pulse Oximetry 100 02/11/25 13:06 Oxygen Delivery Room Air 02/11/25 13:06 Temperature 97.7 F 02/11/25 13:06 Pulse Rate 72 02/11/25 14:39 Respiratory Rate 20 02/11/25 14:37 Blood Pressure 94/57 L 02/11/25 14:37 Pulse Oximetry 100 02/11/25 14:39 Oxygen Delivery Room Air 02/11/25 14:39 <Kyle Martinez MD - Last Filed: 02/11/25 15:21> MDM - SOB/Dyspnea Lab Data Result diagrams: 02/11/25 13:32 02/11/25 13:32 <Melecio Burk, WATER QUALITY ASSISTANT - Last Filed: 02/11/25 13:11> Labs: Lab Results 02/11/25 02/11/25 Range/Units 13:26 13:32 WBC 10.1 H (4.5-10.0) K/mm3 RBC 4.83 (4.2-5.4) M/mm3 Hgb 13.4 (12.0-15.0) g/dL Hct 41.9 (37.0-47.0) % MCV 86.7 (80-100) fl MCH 27.7 (26-34) pg MCHC 32.0 (32-36) g/dl RDW 12.8 (11.5-14.5) % Plt Count 320 (150-375) k/mm3 MPV 10.4 (7.4-10.4) fl Immature Gran % (Auto) 0.4 (0-0.5) % Neut % (Auto) 65.4 (45.5-73.1) % Lymph % (Auto) 25.6 (18.3-44.2) % [place] % (Auto) 6.8 (2.6-8.5) % Eos % (Auto) 1.2 (0-4.4) % Baso % (Auto) 0.6 (0.2-1.2) % Lymph # (Auto) 2.58 (0.9-3.2) K/mm3 [place] # (Auto) 0.7 H (0.1-0.6) K/mm3 Eos # (Auto) 0.1 (0-0.3) K/mm3 Baso # (Auto) 0.1 (0.0-0.1) K/mm3 Abs Immat Gran (auto) 0.04 H (0.00-0.031) K/mm3 Absolute Neuts (auto) 6.6 (1.3-6.7) K/mm3 Absolute Nucleated RBC 0.000 (0.0-0.012) K/mm3 Nucleated RBC % 0.0 (0.0-0.2) % Sodium 135 L (137-145) mmol/L Potassium 4.2 (3.4-5.0) mmol/L Chloride 103 (98-107) mmol/L Carbon Dioxide 24 (22-30) mmol/L Anion Gap 8 (4-12) mmol/L BUN 15 (7-17) mg/dL Creatinine 0.86 (0.7-1.0) mg/dL Estim Creat Clear Calc 104 ml/min Estimated GFR > 60 (59 - ) Glucose 92 (65-110) mg/dL Calcium 9.2 (8.4-10.2) mg/dL Total Bilirubin 0.3 (0.2-1.3) mg/dL AST 35 (14-36) U/L ALT 25 (6-35) U/L Alkaline Phosphatase 45 (38-126) U/L Total Protein 7.6 (6.3-8.2) g/dL Albumin 4.1 (3.5-5.1) g/dL Urine Color Yellow (Yellow) Urine Appearance Clear (Clear) Urine pH 7.5 (5.0-9.0) Ur Specific [place] 1.015 (1.001-1.035) Urine Protein Negative (Negative) mg/dL Urine Glucose (UA) Negative (Negative) mg/dL Urine Ketones Negative (Negative) mg/dL Ur Blood (Man) Negative (Negative) Urine Nitrate Negative (Negative) Urine Bilirubin Negative (Negative) Urine Urobilinogen 0.2 (<2.0) mg/dL Leukocyte Esterase Rfl Trace H (Negative) RACHEL/UL Urine RBC 0-2 (0-2) /hpf Urine WBC 0-5 (0-3) /hpf Ur Squamous Epith Cells None seen (Few) /hpf Urine Bacteria None seen /hpf Urine Casts 0-2 POC Urine HCG, Qual Negative (Negative) <Melecio Burk, WATER QUALITY ASSISTANT - Last Filed: 02/11/25 13:11> Lab Results 02/11/25 02/11/25 Range/Units 13:26 13:32 WBC 10.1 H (4.5-10.0) K/mm3 RBC 4.83 (4.2-5.4) M/mm3 Hgb 13.4 (12.0-15.0) g/dL Hct 41.9 (37.0-47.0) % MCV 86.7 (80-100) fl MCH 27.7 (26-34) pg MCHC 32.0 (32-36) g/dl RDW 12.8 (11.5-14.5) % Plt Count 320 (150-375) k/mm3 MPV 10.4 (7.4-10.4) fl Immature Gran % (Auto) 0.4 (0-0.5) % Neut % (Auto) 65.4 (45.5-73.1) % Lymph % (Auto) 25.6 (18.3-44.2) % [place] % (Auto) 6.8 (2.6-8.5) % Eos % (Auto) 1.2 (0-4.4) % Baso % (Auto) 0.6 (0.2-1.2) % Lymph # (Auto) 2.58 (0.9-3.2) K/mm3 [place] # (Auto) 0.7 H (0.1-0.6) K/mm3 Eos # (Auto) 0.1 (0-0.3) K/mm3 Baso # (Auto) 0.1 (0.0-0.1) K/mm3 Abs Immat Gran (auto) 0.04 H (0.00-0.031) K/mm3 Absolute Neuts (auto) 6.6 (1.3-6.7) K/mm3 Absolute Nucleated RBC 0.000 (0.0-0.012) K/mm3 Nucleated RBC % 0.0 (0.0-0.2) % Sodium 135 L (137-145) mmol/L Potassium 4.2 (3.4-5.0) mmol/L Chloride 103 (98-107) mmol/L Carbon Dioxide 24 (22-30) mmol/L Anion Gap 8 (4-12) mmol/L BUN 15 (7-17) mg/dL Creatinine 0.86 (0.7-1.0) mg/dL Estim Creat Clear Calc 104 ml/min Estimated GFR > 60 (59 - ) Glucose 92 (65-110) mg/dL Calcium 9.2 (8.4-10.2) mg/dL Total Bilirubin 0.3 (0.2-1.3) mg/dL AST 35 (14-36) U/L ALT 25 (6-35) U/L Alkaline Phosphatase 45 (38-126) U/L Total Protein 7.6 (6.3-8.2) g/dL Albumin 4.1 (3.5-5.1) g/dL Urine Color Yellow (Yellow) Urine Appearance Clear (Clear) Urine pH 7.5 (5.0-9.0) Ur Specific [place] 1.015 (1.001-1.035) Urine Protein Negative (Negative) mg/dL Urine Glucose (UA) Negative (Negative) mg/dL Urine Ketones Negative (Negative) mg/dL Ur Blood (Man) Negative (Negative) Urine Nitrate Negative (Negative) Urine Bilirubin Negative (Negative) Urine Urobilinogen 0.2 (<2.0) mg/dL Leukocyte Esterase Rfl Trace H (Negative) RACHEL/UL Urine RBC 0-2 (0-2) /hpf Urine WBC 0-5 (0-3) /hpf Ur Squamous Epith Cells None seen (Few) /hpf Urine Bacteria None seen /hpf Urine Casts 0-2 POC Urine HCG, Qual Negative (Negative) <Kyle Martinez MD - Last Filed: 02/11/25 15:21> Imaging Data Radiologist's impression: ITS Impressions Chest X-Ray 02/11/25 14:02 Impression: No acute cardiopulmonary abnormality. Chest CTA 02/11/25 14:13 IMPRESSION: 1. No PE or other acute cardiopulmonary findings. Venous Doppler Study 02/11/25 14:29 Impression: Negative for DVT. <Kyle Martinez MD - Last Filed: 02/11/25 15:21> Discharge Plan Discharge Clinical Impression: Calf pain, Dyspnea, unspecified <Melecio Burk APRN - Last Filed: 02/11/25 13:11> Patient Disposition: Home <Melecio Burk APRN - Last Filed: 02/11/25 13:11> Condition: Stable <Melecio Burk APRN - Last Filed: 02/11/25 13:11> Instructions: Dyspnea (ED) <Melecio Burk APRN - Last Filed: 02/11/25 13:11> Additional Instructions: Please return to the emergency department if you develop severe and persistent chest pain, difficulty breathing, dizziness, leg swelling or if you are coughing up blood as these can be signs of a medical emergency. Please call your doctor for a follow up appointment to determine the need for further testing. <Melecio Burk APRN - Last Filed: 02/11/25 13:11> Patient Language: Syriac <Melecio Burk APRN - Last Filed: 02/11/25 13:11> Prescriptions: No Action metformin 500 mg tablet 500 mg PO DAILY spironolactone 100 mg tablet 100 mg PO DAILY <Melecio Burk APRN - Last Filed: 02/11/25 13:11> Follow-up/Referrals: PHYSICIAN NOT ON STAFF,NONSTAFF [Primary Care Provider] <Melecio Bukr APRN - Last Filed: 02/11/25 13:11>
[2025-02-11 13:06] VITALS: BP 142/94; PULSE 80; RESP 17; TEMP 36.5; O2SAT 100
[2025-02-11 13:27] LABS: BEDSIDEPREGUCG Negative (Negative)
[2025-02-11 13:41] LABS: Hematocrit 41.9 % (37.0-47.0); Hemoglobin 13.4 g/dL (12.0-15.0); Immature Granulocyte Percent A 0.4 % (0-0.5); Lymphocytes Absolute Auto 2.58 K/mm3 (0.9-3.2); Mean Corpuscular HGB Conc 32.0 g/dl (32-36); Mean Corpuscular Hemoglobin 27.7 pg (26-34); Mean Corpuscular Volume 86.7 fl (80-100); Nucleated Red Blood Cells Absolute Auto 0.000 K/mm3 (0.0-0.012); Nucleated Red Blood Cells Perc 0.0 % (0.0-0.2); Platelet Count Result 320 k/mm3 (150-375); Red Blood Count 4.83 M/mm3 (4.2-5.4); White Blood Count 10.1 K/mm3 (4.5-10.0)
--- OUTSIDE RECORDS SUMMARY | 2025-02-11 13:46 | XMS_ITS | Clinical Summary ---
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
--- OUTSIDE RECORDS SUMMARY | 2025-02-11 13:46 | XMS_ITS | Clinical Summary ---
Author Organization [facility] Address [address] [place] [address] Care Team Providers Care Angledozer Operator Name Role Phone Haresh Pruitt MD [phone] Social History Tobacco Use Types Packs/Day Years [...] this topic Insurance [place] Care Teams Angledozer Operator Relationship Specialty Start Date End Date Haresh Pruitt MD [address] [place] [address] [place] [address] PCP - General Family Medicine 02/24/24
--- OUTSIDE RECORDS SUMMARY | 2025-02-11 13:46 | XMS_ITS | Data Portability ---
Author Organization [place] [facility] [employer], Main Office Address [address] [place] [address] Assessment Encounter Date Assessment Date Assessment LastModified by Organization Details LastModified Time 09/02/2022 09/02/2022 Will see me back macario thinks that she may be losing her insurance so not scheduling appointment yet [email or web address] Not available 09/02/2022 21:55:05 12/24/2022 12/24/2022 Hypercoagulable workup follow up yuliet. she does not want to schedule appointment because she is losing health insurance [email or web address] Not available 12/24/2022 15:03:58 Plan of Treatment Reminders Order Date Submit Date Provider Last Modified By Organization Details Last Modified Time Details Appointments None record ed. Lab None record ed. Referral None record ed. Procedures None record ed. Surgeries None record ed. Imaging None record ed. Medication Orders None record ed. Patient TargetsNo targets recorded. Patient InstructionsNo instructions recorded. Reason for Referral None Reported. Results Created Date Observation Date Name Description Value Unit Range Abnormal Flag Note LastModifiedBy Organization Detail LastModifiedTime 03/30/20 22 03/30/2022 SARS- COV-2 RNA(C OVID1 9),RT -PCR sars-cov-2 RNA(covid19) ,RT-PCR positi ve abnormal This test has been autho rized by the FDA under an Emerg ency Use Autho rizat ion (EUA) for use by autho rized labor atori es. Negat sonal resul ts do not precl ude SARS- CoV-2 and shoul d not be used as the sole basis for treat ment or other patie nt manag ement decis ions. Test resul ts shoul d be corre lated with the clini jayro histo ry, epide miolo gical data, and other data avail able to the clini melva evalu ating the patie nt. Fernando belle w the Fact Sheet s for healt h care provi ders and patie nts at the [facility] len: https ://ww w.Parachute .gov/ media /1363 12/do wnloa d https ://ww w.Parachute .gov/ media /1363 13/do wnloa d https ://ww Tinypay.me.fda .gov/ media /1421 92/do wnloa d https ://ww Tinypay.me.fda .gov/ media /1421 91/do wnloa d Metho dolog y: Real- Time RT-PC R Not Available [facility] (Lab) [address] [place], [address], 03/30/2022 13:50:12 03/30/20 22 03/30/2022 RAPID STREP A DNA strep A antigen negati ve negati ve Not Available [facility] (Lab) [address] [place], [address], 03/30/2022 13:41:39 03/30/20 22 03/30/2022 INFLU NGOZI A/B ANTIG EN RAPID flu A negati ve negati ve Not Available [facility] (Lab) [address] [place], [address], 03/30/2022 13:18:50 03/30/20 22 03/30/2022 INFLU NGOZI A/B ANTIG EN RAPID flu B negati ve negati ve THIS TEST CAN NOT DISTI NGUIS H INFLU NGOZI A VIRUS SUBTY PES. ALSO, FERNANDO E NOTE THAT A NEGAT SONAL RESUL T DOES NOT EXCLU DE INFLU NGOZI VIRUS INFEC TION. IF MORE CONCL USIVE TESTI NG IS HERNÁN ED, [facility] W-UP CONFI RMATO RY TESTI NG WITH RT-PC R IS SUGRAAD STED. 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 BYERS' S OFFIC E 1513 BY S This test has been autho rized by the FDA under an Emerg ency Use Autho rizat ion (EUA) for use by autho rized labor atori es. Negat sonal resul ts do not precl ude SARS- CoV-2 and shoul d not be used as the sole basis for treat ment or other patie nt manag ement decis ions. Test resul ts shoul d be corre lated with the clini jayro histo ry, epide miolo gical data, and other data avail able to the clini melva evalu ating the patie nt. Cecilia bazan the Fact Sheet s for healt h care provi ders and patie nts at the [facility] len: https ://ww w.fda .gov/ media /8563 12/do wnloa d https ://ww w.fda .gov/ media /1363 13/do wnloa d https ://ww w.fda .gov/ media /1421 92/do wnloa d https ://ww w.fda .gov/ media /1421 91/do wnloa d Metho dolog y: Real- Time RT-PC R Not Available [facility] (Lab) [address] [place], [address], 04/06/2022 13:37:16 12/29/19 23 12/28/2022 CBC/C OMPLE TE BLD COUNT W/DIF F white blood cells 7.3 x10'3 /uL 4.2-10 .8 Not Available [facility] (Lab) [address] [place], [address], 12/28/2022 12:24:04 12/29/19 23 12/28/2022 CBC/C OMPLE TE BLD COUNT W/DIF F red blood cells 5.03 x10'6 /uL 3.80-5 .20 Not Available [facility] (Lab) [address] [place], [address], 12/28/2022 12:24:04 12/29/19 23 12/28/2022 CBC/C OMPLE TE BLD COUNT W/DIF F hemoglobin 14.6 g/dL 12.0-1 5.6 Not Available [facility] (Lab) [address] [place], [address], 12/28/2022 12:24:04 12/29/19 23 12/28/2022 CBC/C OMPLE TE BLD COUNT W/DIF F hematocrit 45.4 % 35.7-4 5.7 Not Available [facility] (Lab) [address] [place], [address], 12/28/2022 12:24:04 12/29/19 23 12/28/2022 CBC/C OMPLE TE BLD COUNT W/DIF F mean red cell volume 90.3 fL 82.0-9 9.0 Not Available [facility] (Lab) [address] [facility] [place], [address], 12/28/2022 12:24:04 12/29/19 23 12/28/2022 CBC/C OMPLE TE BLD COUNT W/DIF F mean red cell hemoglobin 29.0 pg 27.0-3 3.0 Not Available [facility] (Lab) [address] [place], [address], 12/28/2022 12:24:04 12/29/19 23 12/28/2022 CBC/C OMPLE TE BLD COUNT W/DIF F mean RBC HGB concentratio n 32.2 g/dL 31.0-3 6.0 Not Available [facility] (Lab) [address] [place], [address], 12/28/2022 12:24:04 12/29/19 23 12/28/2022 CBC/C OMPLE TE BLD COUNT W/DIF F red cell distribution width 12.1 % 11.8-1 5.5 Not Available [facility] (Lab) [address] [place], [address], 12/28/2022 12:24:04 12/29/19 23 12/28/2022 CBC/C OMPLE TE BLD COUNT W/DIF F platelets 222 x10'3 /uL 150-40 0 Not Available [facility] (Lab) [address] [place], [address], 12/28/2022 12:24:04 12/29/19 23 12/28/2022 CBC/C OMPLE TE BLD COUNT W/DIF F mean platelet volume 12.1 fL 9.0-12 .4 Not Available [facility] (Lab) [address] [place], [address], 12/28/2022 12:24:04 12/29/19 23 12/28/2022 CBC/C OMPLE TE BLD COUNT W/DIF F neutrophils 62.6 % 39.0-7 2.0 Not Available [facility] (Lab) [address] [place], [address], 12/28/2022 12:24:04 12/29/19 23 12/28/2022 CBC/C OMPLE TE BLD COUNT W/DIF F lymphocytes 28.1 % 16.0-4 7.0 Not Available [facility] (Lab) [address] [facility] [place], [address], 12/28/2022 12:24:04 12/29/19 23 12/28/2022 CBC/C OMPLE TE BLD COUNT W/DIF F monocytes 7.0 % 5.0-12 .0 Not Available [facility] (Lab) [address] [place], [address], 12/28/2022 12:24:04 12/29/19 23 12/28/2022 CBC/C OMPLE TE BLD COUNT W/DIF F eosinophils 1.2 % 1.0-7. 0 Not Available [facility] (Lab) [address] [place], [address], 12/28/2022 12:24:04 12/29/19 23 12/28/2022 CBC/C OMPLE TE BLD COUNT W/DIF F basophils 0.7 % 0.0-2. 0 Not Available [facility] (Lab) [address] [place], [address], 12/28/2022 12:24:04 12/29/19 23 12/28/2022 CBC/C OMPLE TE BLD COUNT W/DIF F immature granulocytes 0.4 % 0.00-0 .50 Not Available [facility] (Lab) [address] [place], [address], 12/28/2022 12:24:04 12/29/19 23 12/28/2022 CBC/C OMPLE TE BLD COUNT W/DIF F neutrophils, absolute count 4.57 x10'3 /uL 1.5-8. 0 Not Available [facility] (Lab) [address] [place], [address], 12/28/2022 12:24:04 12/29/1912/28/2022 CBC/C OMPLE TE BLD COUNT W/DIF F lymphocytes, absolute count 2.05 x10'3 /uL 1.07-3 .43 Not Available [facility] (Lab) [address] [place], [address], 12/28/2022 12:24:04 12/29/19 23 12/28/2022 CBC/C OMPLE TE BLD COUNT W/DIF F monocytes, absolute count 0.51 x10'3 /uL 0.29-0 .99 Not Available [facility] (Lab) [address] [place], [address], 12/28/2022 12:24:04 12/29/19 23 12/28/2022 CBC/C OMPLE TE BLD COUNT W/DIF F eosinophils, absolute count 0.09 x10'3 /uL 0.02-0 .53 Not Available [facility] (Lab) [address] [place], [address], 12/28/2022 12:24:04 12/29/19 23 12/28/2022 CBC/C OMPLE TE BLD COUNT W/DIF F basophils, absolute count 0.05 x10'3 /uL 0.01-0 .08 Not Available [facility] (Lab) [address] [place], [address], 12/28/2022 12:24:04 12/29/19 23 12/28/2022 CBC/C OMPLE TE BLD COUNT W/DIF F immature granulocytes ,absolute 0.03 x10'3 /uL 0.00-0 .05 Not Available [facility] (Lab) [address] [place], [address], 12/28/2022 12:24:04 12/29/19 23 12/28/2022 CBC/C OMPLE TE BLD COUNT W/DIF F nucleated red blood cells 0.0 % -0 Not Available [facility] (Lab) [address] [place], [address], 12/28/2022 12:24:04 12/29/19 23 12/28/2022 CBC/C OMPLE TE BLD COUNT W/DIF F NRBC# 0.00 x10'3 /uL Not Available [facility] (Lab) [address] [place], [address], 12/28/2022 12:24:04 12/29/19 23 12/28/2022 COMPR EHENS SONAL METAB OLIC PANEL sodium 139 mmol/ L 137-14 5 Not Available [facility] (Lab) [address] [place], [address], 12/28/2022 12:35:20 12/29/19 23 12/28/2022 COMPR EHENS SONAL METAB OLIC PANEL potassium 3.9 mmol/ L 3.5-5. 1 Not Available [facility] (Lab) [address] [place], [address], 12/28/2022 12:35:20 12/29/19 23 12/28/2022 COMPR EHENS SONAL METAB OLIC PANEL chloride 101 mmol/ L 98-107 Not Available [facility] (Lab) [address] [place], [address], 12/28/2022 12:35:20 12/29/19 23 12/28/2022 COMPR EHENS SONAL METAB OLIC PANEL carbon dioxide 28 mmol/ L 22-30 Not Available [facility] (Lab) [address] [place], [address], 12/28/2022 12:35:20 12/29/19 23 12/28/2022 COMPR EHENS SONAL METAB OLIC PANEL anion gap 13.9 mmol/ L 14-22 low Not Available [facility] (Lab) [address] [place], [address], 12/28/2022 12:35:20 12/29/19 23 12/28/2022 COMPR EHENS SONAL METAB OLIC PANEL glucose 93 mg/dL 70-99 Not Available [facility] (Lab) [address] [place], [address], 12/28/2022 12:35:20 12/29/19 23 12/28/2022 COMPR EHENS SONAL METAB OLIC PANEL BUN 14 mg/dL 8-19 Not Available [facility] (Lab) [address] [place], [address], 12/28/2022 12:35:20 12/29/19 23 12/28/2022 COMPR EHENS SONAL METAB OLIC PANEL creatinine 0.91 mg/dL 0.66-1 .25 Not Available [facility] (Lab) [address] [place], [address], 12/28/2022 12:35:20 12/29/19 23 12/28/2022 COMPR EHENS SONAL METAB OLIC PANEL GFR >60 Refer ence Range : Dyer ge GFR Healt hy Adult : >60 mL/mi n/1.7 3 m2 Chron ic Kidne y Disea se: 15-60 mL/mi n/1.7 3 m2 Kidne y Failu re: <15/m L/min /1.73 m2 www.n iddk. nih.g ov The MDRD study equat ion has not been valid ated in child bertha <18 years of age; pregn ant women ; the elder ly >85 years of age; or in some racia l or ethni c subgr oups, such as Hispa nics. Outsi de the valid ated verenice eters , estim ated GFR is less accur ate, requi ring clini jayro judgm ent on a case- by-ca se basis . Clini jayro inter preta tion for other races and ages must be made by the clini melva. The MDRD study equat ion has not been valid ated for the evalu ation of serum creat inine relat ed to nutri jamee l statu s or medic ation usage . For perso ns <18 years of age, a pedia tric GFR calcu lator is avail able on the [facility] websi te: https ://sherice emy.o rg/pr ofess ional s/kdo qi/gf r_cal culat or Not Available [facility] (Lab) [address] [place], [address], 12/28/2022 12:35:20 12/29/19 23 12/28/2022 COMPR EHENS SONAL METAB OLIC PANEL alkaline phosphatase 47 U/L 38-126 Not Available [facility] (Lab) [address] [place], [address], 12/28/2022 12:35:20 12/29/19 23 12/28/2022 COMPR EHENS SONAL METAB OLIC PANEL alanine aminotransfe rase 22 U/L 0-35 Not Available [facility] (Lab) [address] [place], [address], 12/28/2022 12:35:20 12/29/19 23 12/28/2022 COMPR EHENS SONAL METAB OLIC PANEL aspartate aminotransfe rase 25 U/L 15-37 Not Available [facility] (Lab) [address] [place], [address], 12/28/2022 12:35:20 12/29/19 23 12/28/2022 COMPR EHENS SONAL METAB OLIC PANEL bilirubin, total 0.30 mg/dL 0.20-1 .30 Not Available [facility] (Lab) [address] [place], [address], 12/28/2022 12:35:20 12/29/19 23 12/28/2022 COMPR EHENS SONAL METAB OLIC PANEL calcium 9.8 mg/dL 8.4-10 .2 Not Available [facility] (Lab) [address] [place], [address], 12/28/2022 12:35:20 12/29/19 23 12/28/2022 COMPR EHENS SONAL METAB OLIC PANEL total protein 7.8 g/dL 6.3-8. 2 Not Available [facility] (Lab) [address] [place], [address], 12/28/2022 12:35:20 12/29/19 23 12/28/2022 COMPR EHENS SONAL METAB OLIC PANEL albumin 4.5 g/dL 3.4-5. 0 Not Available [facility] (Lab) [address] [place], [address], 12/28/2022 12:35:20 12/29/19 23 12/28/2022 COMPR EHENS SONAL METAB OLIC PANEL globulin 3.3 g/dL 2.6-4. 2 Not Available [facility] (Lab) [address] [place], [address], 12/28/2022 12:35:20 12/29/19 23 12/28/2022 COMPR EHENS SONAL METAB OLIC PANEL A/G ratio 1.4 ratio 1.0-2. 0 Not Available [facility] (Lab) [address] [place], [address], 12/28/2022 12:35:20 12/29/19 23 12/29/2022 HOMOC YST(E )INE, PLASM A homocyst(E)i ne, plasma 12.2 umol/ L 0.0-14 .5 Perfo rmed at: [facility] [place] [id number] Lab Direc tor: Lorenzo candelaria PhD, Phone : [phone] Not Available [facility] (Lab) [address] [place], [address], 12/29/2022 08:27:44 12/29/19 23 12/29/2022 PROTE IN ELECT RO.,S protein, total 7.2 g/dL 6.0-8. 5 Not Available [facility] (Lab) [address] [place], [address], 12/29/2022 15:11:34 12/29/19 23 12/29/2022 PROTE IN ELECT RO.,S albumin 3.8 g/dL 2.9-4. 4 Not Available [facility] (Lab) [address] [place], [address], 12/29/2022 15:11:34 12/29/19 23 12/29/2022 PROTE IN ELECT RO.,S xyfuj-5-pfsg ulin 0.2 g/dL 0.0-0. 4 Not Available [facility] (Lab) [address] [place], [address], 12/29/2022 15:11:34 12/29/19 23 12/29/2022 PROTE IN ELECT RO.,S jejho-9-bkxd ulin 0.9 g/dL 0.4-1. 0 Not Available [facility] (Lab) [address] [place], [address], 12/29/2022 15:11:34 12/29/19 23 12/29/2022 PROTE IN ELECT RO.,S beta globulin 1.0 g/dL 0.7-1. 3 Not Available [facility] (Lab) [address] [place], [address], 12/29/2022 15:11:34 12/29/19 23 12/29/2022 PROTE IN ELECT RO.,S gamma globulin 1.3 g/dL 0.4-1. 8 Not Available [facility] (Lab) [address] [place], [address], 12/29/2022 15:11:34 12/29/19 23 12/29/2022 PROTE IN ELECT RO.,S M-spike NOT OBSERV ED g/dL not observ ed Not Available [facility] (Lab) [address] [place], [address], 12/29/2022 15:11:34 12/29/19 23 12/29/2022 PROTE IN ELECT RO.,S globulin, total 3.4 g/dL 2.2-3. 9 Not Available [facility] (Lab) [address] [place], [address], 12/29/2022 15:11:34 12/29/19 23 12/29/2022 PROTE IN ELECT RO.,S A/G ratio 1.1 0.7-1. 7 Not Available [facility] (Lab) [address] [place], [address], 12/29/2022 15:11:34 12/29/19 23 12/29/2022 PROTE IN ELECT RO.,S please note: COMMEN T . Prote in elect [facility] resis scan will follo w via compu ter, mail, or couri er trisha zamany. Not Available [facility] (Lab) [address] [place], [address], 12/29/2022 15:11:34 12/29/19 23 12/29/2022 PROTE IN ELECT RO.,S pdf . Perfo rmed at: [facility] [place] [address] Lab Direc tor: Lorenzo candelaria PhD, Phone : [phone] Not Available [facility] (Lab) [address] [place], [address], 12/29/2022 15:11:34 12/29/19 23 12/30/2022 ROSS BY IFA RFX TITER /ELOISA VICENTA antinuclear antibodies, ifa Negati ve Negat sonal <1:80 Borde rline 1:80 Posit sonal >1:80 ICAP channing hernandez re: AC-0 For more infor melissa vasquez about Hep-2 cell patte rns use ANApa ttern s.org , the offic iaroshan conn te for the Inter natio nal Conse nsus on Antin uclea r Antib adrian (ROSS) Patte rns ([facility] ). Perfo rmed at: - [facility] [place] [facility] n [address] [facility] [place] [address] Lab Direc tor: Lorenzo candelaria PhD, Phone : [phone] Not Available [facility] (Lab) [address] [place], [address], 12/30/2022 10:13:07 12/29/19 23 12/30/2022 MISCE LLANE OUS TEST misc test COMMEN T SENT TO REFER ENCE LAB; SEE SEPAR ATE REPOR T Not Available [facility] (Lab) [address] [place], [address], 12/30/2022 10:28:03 12/29/19 23 12/31/2022 PROTE IN C-FUN CTION AL protein C-functional 130 % 73-180 Perfo rmed at: [facility] [address] [place] [id number] [facility] Lab Direc tor: Anuradha davenport MD, Phone : [phone] Not Available [facility] (Lab) [address] [place], [address], 12/31/2022 12:12:22 12/29/19 23 12/31/2022 ANTIT HROMB IN ACTIV ITY antithrombin activity 136 % 75-135 high An eleva rosendo antit hromb in activ ity is of no known clini jayro signi fican ce. Direc t Xa inhib itor antic oagul ants such as rivar oxaba n, apixa ban and edoxa ban will lead to spuri ously eleva rosendo antit hromb in activ ity level s possi jenelle maski ng a defic iency . [facility]fo [facility]med at: - [facility] [address] [place] [address] Lab Direc tor: Anuradha davenport MD, Phone : [phone] Not Available [facility] (Lab) [address] [place], [address], 12/31/2022 15:10:30 12/29/19 23 12/31/2022 PROTE IN S-FUN CTION AL protein S-functional 108 % 63-140 Prote in S activ ity may be false ly incre ased (mask ing an abnor mal, low resul t) in patie nts recei ving direc t Xa inhib itor (e.g. , rivar oxaba n, apixa ban, edoxa ban) or a direc t throm bin inhib itor (e.g. , dabig atran ) antic oagul ant treat ment due to assay inter feren ce by these drugs . Perfo rmed at: [facility] [address] [place] [address] Lab Direc tor: Anuradha davenport MD, Phone : [phone] Not Available [facility] (Lab) [address] [place], [address], 12/31/2022 16:13:49 12/29/19 23 01/01/2023 LUPUS ANTIC OAGUL ANT REFLE X PTT-la 37.6 sec 0.0-43 .5 Not Available [facility] (Lab) [address] [place], [address], 01/01/2023 18:09:02 12/29/19 23 01/01/2023 LUPUS ANTIC OAGUL ANT REFLE X drvvt 43.4 sec 0.0-47 .0 Not Available [facility] (Lab) [address] [place], [address], 01/01/2023 18:09:02 12/29/19 23 01/01/2023 LUPUS ANTIC OAGUL ANT REFLE X lupus reflex interpretati on COMMEN T: No lupus antic oagul ant was detec rosendo. Perfo rmed at: [facility] [address] [place] [address] Lab Direc tor: Anuradha davenport MD, Phone : [phone] Not Available [facility] (Lab) [address] [place], [address], 01/01/2023 18:09:02 12/29/19 23 01/01/2023 HEXAG ONAL PHASE PHOSP HOLIP ID hexagonal phase phospholipid 4 sec 0-11 [facility]fo [facility]med at: [facility] [address] [place] [address] Lab Direc tor: Anuradha davenport MD, Phone : [phone] Not Available [facility] (Lab) [address] [place], [address], 01/01/2023 19:08:38 12/29/19 23 01/01/2023 HEXAG ONAL PHASE PHOSP HOLIP ID comment Commen t . Resul ts do not indic ate the prese nce of a Lupus Antic oagul ant: abnor mal high scree axel resul ts (PTT- LA, dRVVT , mixin g studi es), may be due to medic ation (hepa rin, warfa rin, aspir in), Facto r inhib itors , antic ardio lipin antib odies , or poor speci men integ rity. [facility]fo [facility]med at: [facility] [address] [place] [address] Lab Direc tor: Anuradha davenport MD, Phone : [phone] Not Available [facility] (Lab) [address] [place], [address], 01/01/2023 19:08:38 12/29/19 23 01/03/2023 FACTO R V LEIDE N MUTAT ION factor V leiden COMMEN T Resul t: c.160 1G>A (p.Ar g534G ln) - Not Detec rosendo . This resul t is not assoc iated with an incre ased risk for johnny ous throm boemb olism . See Addit ional Clini jayro Infor matio n and Comme nts. . Addit ional Clini jayro Infor matio n: Venou s throm boemb olism is a multi facto rial disea se influ enced by royal ic, envir onmen sahok, and circu mstan tial risk facto rs. The c.160 1G>A (p. Arg53 4Gln) varia nt in the F5 gene, commo nly refer red to as Facto r V Leide n, is a royal ic risk facto r for venou s throm boemb olism . Heter ozygo us marylou ers of this varia nt have a 6- to 8- fold incre ased risk for venou s throm boemb olism . Indiv idual s homoz ygous for this varia nt (ie, with a copy of the varia nt on each chrom osome ) have an appro ximat lisette 80-fo ld incre ased risk for venou s throm boemb olism . Indiv idual s who carry both a c.*97 G>A varia nt in the F2 gene and Facto r V Leide n have an appro ximat lisette 20-fo ld incre ased risk for venou s throm boemb olism . Risks are likel y to be even highe r in more compl ex genot ype combi natio ns invol ving the F2 c.*97 G>A varia nt and Facto r V Leide n (PMID : [phone]). Addit ional risk facto rs inclu de but are not limit ed to: defic iency of prote in C, prote in S, or antit hromb in III, age, male sex, perso nal or famil y histo ry of deep vein throm boemb olism , smoki ng, surge ry, prolo nged immob iliza tion, malig nant neopl asm, tamox ifen treat ment, ralox ifene treat ment, oral contr acept sonal use, hormo ne repla cemen t thera py, and pregn jermaine. Manag ement of throm botic risk and throm botic event s shoul d follo w estab lishe d guide lines and fit the clini jayro circu mstan ce. This resul t canno t predi ct the occur rence or recur rence of a throm botic event . . Comme nt: Royal ic couns christina is recom jax d to discu ss the poten tial clini jayro impli catio ns of posit sonal resul ts, as well as recom menda tions for testi ng famil y membe rs. . Royal ic Coord inato rs are avail able for healt h care provi ders to discu ss resul ts at [phone] . Test Detai ls: Varia nt Yocasta zed: c.160 1G>A (p. Arg53 4Gln) , refer red to as Facto r Garry vasquez . Metho ds/Li mitat ions: DNA yocasta sis of the F5 gene (NM_0 [id number] .5) was perfo rmed by PCR ampli ficat ion follo wed by restr ictio n enzym e yocasta sis. The diagn ostic sensi tivit y is >99%. Resul ts must be combi eddie with clini jayro infor matio n for the most accur ate inter preta tion. Molec ular- based testi ng is highl y accur ate, but as in any labor atory test, diagn ostic error s may occur . False posit sonal or false negat sonal resul ts may occur for reaso ns that inclu de royal ic varia nts, blood trans fusio ns, bone marro w trans plant ation , somat ic or tissu e-spe cific mosai cism, misla beled sampl es, or susi eous repre senta tion of famil y relat ionsh ips. . This test was devel oped and its perfo rmanc e yogi cteri stics deter mined by [facility]. It has not been clear ed or appro edy by the Food and Drug Admin istra tion. . Refer ences : Brittanie S, Guan[place] cobos [place], Fidel Cobos, Sonny TINOCO, Toi in JH; [facility] Profe ssion al Pract ice and Guide lines Commi ttee. Adden dum: [facility]ie blevins [facility] Royal ics conse nsus state ment on facto r V Leide christina mutat ion testi ng. [facility] Med. 2020Jul 11. doi: 10.10 /s4 1436- 021-0 1108- x. PMID: 00520 767. . Monae GUERRA. Facto r V Leide n Throm bophi mynor. 2000September [birth year] (Upda rosendo 2017May 12). In: Reynold MP, Lashanda aguilera HH, Kira RA, et al., shahrzad rs. GeneR jhoana sanders(R) (Inte rnet) . Daniella denton ([place]): Unive rsity of Maya bigritjesu Daniella; 1994- 2020. Avail able from: https ://ww w.ncb i.nlm .nih. gov/b ooks/ NBK13 68/ . David S, Guanako cobos [place], Quinton X, Ryan B, Spect or EB, Shameka P, May shaikh CS; [facility] Labor atory Quali ty Assur ance Commi ttee. 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 [facility] Med. 2018 Apr;2 0(12) :1489 -1498 . doi: 10.10 /s4 1436- 018-0 322-z . Epub 2017Feb 10. PMID: 72905 698. Not Available [facility] ([facility]) [address] [place], [address], 01/03/2023 13:08:53 12/29/19 23 01/03/2023 FACTO R V LEIDE N MUTAT ION reviewed by: NATALY Pressley Techn ical [place] perfo rmed at [facility] [place] Eb mora al [place] perfo rmed by: . Mary vasquez, Ph.D. , [facility] Dire tor, Molec ular Royal ics [address] [facility] [address] Perfo rmed at: - [facility] [place] [address] [place] [address] Lab Direc tor: Genaro Armendariz [facility] , Phone : [phone] Not Available [facility] (Lab) [address] [place], [address], 01/03/2023 13:08:53 12/29/19 23 01/03/2023 PROTH ROMBI N FACTO R II, DNA factor II, DNA analysis Commen t Resul t: c.*97 G>A - Not Detec rosendo . This resul t is not assoc iated with an incre ased risk for johnny ous throm boemb olism . See Addit ional Clini jayro Infor matio n and Comme nts. . 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 Heter ozygo us marylou ers have a 2- to 4-fol d i ncrea sed risk for venou s throm boemb olism . Homoz ygote s for the c.*97 G> A varia nt are rare. The annua l risk of VTE in homoz ygote s has been rep orted to be 1.1%/ year. Indiv idual s who carry both a c.*97 G>A varia nt in the F2 gene and a c.160 1G>A (p. Arg53 4Gln) varia nt in the F5 gen e (comm only refer red to as Facto r V Leide n) have an appro ximat lisette 20- fold incre ased risk for venou s throm boemb olism . Risks are li alexa to be even highe r in more compl ex genot ype combi natio ns invol vi ng the F2 c.*97 G>A varia nt and Facto r V Leide n (PMID : 63732 767). Ad ditio nal risk facto rs inclu de but are not limit ed to: defic iency of p rotei n C, prote in S, or antit hromb in III, age, male sex, perso nal or f amily histo ry of deep vein throm boemb olism , smoki ng, surge ry, prol onged immob iliza tion, malig nant neopl asm, tamox ifen treat ment, ral oxife ne treat ment, oral contr acept sonal use, hormo ne repla cemen t thera py, and pregn jermaine. Manag ement of throm botic risk and throm botic even ts shoul d follo w estab lishe d guide lines and fit the clini jayro circu msta nce. This resul t canno t predi ct the occur rence or recur rence of a thro mboti c event . . Comme nts: Royal ic couns christina is recom jax d to discu ss the poten tial c linic al impli catio ns of posit sonal resul ts, as well as recom menda tions for testi ng famil y membe rs. Royal ic Coord inato rs are avail able for healt h care provi ders to discu ss resul ts at [phone] ). . Test Detai ls: Varia nt yocasta zed: c.*97 G>A, previ ously refer red to as G2021 0 A . Metho ds/Li mitat ions: DNA yocasta sis of the F2 gene (NM_0 [id number] .5) was perfo rmed by P CR ampli ficat ion follo wed by restr ictio n enzym e yocasta sis. The d iagno stic sensi tivit y is >99%. Resul ts must be combi eddie with clini jayro infor matio n for the most accur ate inter preta tion. Molec ular- based testi ng is highl y accur ate, but as in any labor atory test, d iagno stic error s may occur . False posit sonal or false negat sonal resul ts m ay occur for reaso ns that inclu de royal ic varia nts, blood trans fusio n s, bone marro w trans plant ation , somat ic or tissu e-spe cific mosai cism , misla beled sampl es, or susi eous repre senta tion of famil y relat ionsh ips. . This test was devel oped and its perfo rmanc e yogi cteri stics deter mined by [facility]. It has not been clear ed or appro edy by the Food and Drug Admin istra tion. . Refer ences : Brittanie Sanders, Guanako BUSTOS, Fidel Cobos, Sonny TINOCO, Toi in ; [facility] Pro fessi onal Pract ice and Guide lines Commi ttee. Adden dum: Goldie hart e of Medic al Royal ics conse nsus state ment on facto r V Leide n muta tion testi ng. [facility] Med. 2020Jul 11. doi: 10.10 38/s4 1436- 021-0 110 8-x. PMID: 99206 767. . Monae sosa JL. Proth rombi n Throm bophi mynor. 2005Nov 30 [Upda rosendo 2020Jun 12]. In: Reynold MP, Lashanda aguilera HH, Kira RA, et al., shahrzad rs. GeneR jhoana s(R) [Inte rnet] . Daniella denton ([place]): Unive rsity of [facility] Daniella ramsey; 1994- 2020. Avail able from: https ://sherice bazan.ncb i.nlm .nih. gov/b ooks/ NBK11 48/ . David Sanders, Guanako BUSTOS, Quinton Mendoza, Ryan B, Spect or EB, Shameka P, Donnell segal CS; [facility] Labor atory Quali ty Assur ance Commi ttee. Venou s throm jaylen mboli sm labor atory testi ng (fact or V Leide n and facto r II c.*97 G>A), 2018 updat e: a techn ical stand pipo of the Goldie Wall ge of Medic al [facility] and [facility] ([facility] ). [facility]. 2017;2 0(12) :148 9-149 8. doi: 10.10 38/s4 1436- 018-0 322-z . Epub 2017Feb 10. PMID: 43252 698. Not Available [facility] (Lab) [address] [place], [address], 01/03/2023 14:10:11 12/29/19 23 01/03/2023 PROTH ROMBI N FACTO R II, DNA reviewed by: Nataly pressley Techn ical [place] perfo rmed at [facility] [place] Eb santiago [place] n[place] perfo rmed by: . Mary vasquez, Ph.D. , FAC Direc tor, Molec ular [facility] [address] [facility] [address] Perfo rmed at: TG - [facility] [place] [address] , [place] [address] Lab Direc tor: Joycesilkechristina Armendariz [facility] , Phone : [phone] Not Available [facility] (Lab) [address] [place], [address], 01/03/2023 14:10:11 12/29/19 23 01/07/2023 MISCE LLANE OUS TEST misc test COMMEN T SENT TO REFER ENCE LAB; SEE SEPAR ATE REPOR T Not Available [facility] (Lab) [address] [place], [address], 01/07/2023 16:00:42 01/30/20 22 01/29/2022 XR, chest , 2 view No observ ation record ed. [id number].[id number] [facility], [place], [address], 07/07/2022 15:19:53 01/30/20 22 01/29/2022 CT, angio gram, chest , w/wo contr ast No observ ation record ed. [id number] [place] [address], [address], 07/07/2022 15:19:53 02/25/20 22 02/24/2022 US, sheldon gonzalez s, lower extre mity No observ ation record ed. [id number] [place] [address], [address], 07/07/2022 15:19:53 02/25/20 22 02/24/2022 US, duple x, venou s, lower extre mity No observ ation record ed. [id number] [facility] [address], [place], [address], 07/07/2022 15:19:53 03/02/20 22 03/02/2022 XR, tibia + fibul a, 2 view No observ ation record ed. [id number] [facility] [address], [place], [address], 07/07/2022 15:19:53 08/25/19 24 08/25/2023 XR, lumba r spine , 2 view No observ ation record ed. [email or web address] [facility] [address], [place], [address], 11/22/2023 08:45:58 Result Notes None recorded. Problems Name Problem SNOMED Code Status Onset Date Resolution Date Notes Provider Name and Address Organization Details Recorded Time Abdominal pain 91193877 Active 2021 Not Available [facility] 3 12:35:06 Dizziness 278645810 Active 2021 Not Available [facility] 3 12:35:06 Pain in right lower limb 966019626 Active 2021 Not Available [facility] 3 12:35:06 Acute upper respiratory infection 80557970 Active 2021 Not Available [facility] 3 12:35:06 Infection of skin and/or subcutaneous tissue 50841843 Active 2021 Not Available [facility] 3 12:35:06 Pain in throat 240604874 Active 2022 Not Available [facility] 3 12:35:06 Pain of knee region 3421812193 Active 2022 Not Available [facility] 3 12:35:05 Acute sinusitis 08354300 Active 2022 Not Available [facility] 3 12:35:05 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 Medical Equipment None Reported. Allergies No known drug allergies Medications Name Sig Start Date Stop Date Status Note LastModified by Organization Details LastModified Time amoxicillin 500 mg capsule Take 1 capsule 3 times a day by oral route. 09/02 completed Not Available Not Available Not Available azithromyci n 250 mg tablet TAKE 2 TABLETS BY MOUTH TODAY, THEN TAKE 1 TABLET DAILY FOR 4 DAYS active Not Available Not Available No t Available meloxicam 15 mg tablet Take 1 tablet every day by oral route. active Not Available Not Available No t Available cephalexin 500 mg capsule TAKE 1 CAPSULE BY MOUTH THREE TIMES A DAY FOR 7 DAYS 06/16 completed Not Available Not Available Not Available albuterol sulfate HFA 90 mcg/actuati on aerosol inhaler Inhale 2 puffs every 4 hours by inhalatio n route. active Not Available Not Available No t Available cyanocobala min (vit B-12) 5,000 mcg disintegrat ing tablet Take 1 tablet every day by oral route. 12/24 completed Not Available Not Available Not Available Vitals Date Recorded Body mass index (BMI) Body height Heart rate Body temperature Body weight Systolic And Diastolic Provider Name and Address Organization Details Last Updated DateTime 3 43.3 kg/m2 157.48 cm 65 /min 98.1 [degF] 412688. 39 g 128/88 mm[Hg] Not Available [facility] 3 15:14:25 Date Recorded Body height Body mass index (BMI) Body weight Body temperature Heart rate Systolic And Diastolic Provider Name and Address Organization Details Last Updated DateTime 3 157.48 cm 42.1 kg/m2 255660. 25 g 98 [degF] 71 /min 126/80 mm[Hg] JOHN Dsouza [facility] 3 14:56:06 Date Recorded Body height Body mass index (BMI) Body weight Body temperature Heart rate Systolic And Diastolic Provider Name and Address Organization Details Last Updated DateTime 3 157.48 cm 41.5 kg/m2 192353. 47 g 97.8 [degF] 73 /min 120/78 mm[Hg] Shelby islas RN [place] - [facility] 3 13:10:05 Date Recorded Body mass index (BMI) Body height Heart rate Body temperature Body weight Systolic And Diastolic Provider Name and Address Organization Details Last Updated DateTime 2 44.3 kg/m2 157.48 cm 74 /min 97.2 [degF] 245487. 35 g 138/82 mm[Hg] Not Available [facility] 3 15:14:24 Date Recorded Body mass index (BMI) Body height Heart rate Body temperature Body weight Systolic And Diastolic Provider Name and Address Organization Details Last Updated DateTime 2 44.8 kg/m2 157.48 cm 63 /min 98.5 [degF] 498857. 13 g 122/80 mm[Hg] Not Available [facility] 3 15:14:25 Social History Question Answer Notes LastModified by Organizat ion Details LastModified Time Tobacco Smoking Status Never Smoker Not Available [facility] 07/07/2022 15:13:41 Do You Have An Advance Directive? No MIGRATION.49121 [id number] Information not available 07/07/2022 What Is Your Level Of Caffeine Consumption? Moderate MIGRATION.35515 27514 Information not available 07/07/2022 In The 14 Days Before Symptom Onset, Have You Had Close Contact With A Laboratory-confi rmed COVID-19 While That Case Was Ill? No MIGRATION.28839 12455 Information not available 07/07/2022 In The 14 Days Before Symptom Onset, Have You Had Close Contact With A Person Who Is Under Investigation For COVID-19 While That Person Was Ill? No MIGRATION.02854 13618 Information not available 07/07/2022 What Type Of Diet Are You Following? REGULAR MIGRATION. 45281 Information not available 07/07/2022 What Is The Highest Grade Or Level Of School You Have Completed Or The Highest Degree You Have Received? [id number] MIGRATION. 12518 Information not available 07/07/2022 Have There Been Any Changes To Your Family Or Social Situation? No MIGRATION.14964 25113 Information not available 07/07/2022 What Is The Fluoride Status Of Your Home? Unknown MIGRATION.30607 29593 Information not available 07/07/2022 Are There Any Guns Present In Your Home? No MIGRATION.97903 31883 Information not available 07/07/2022 Do You Use Insect Repellent Routinely? No MIGRATION.65982 85768 Information not available 07/07/2022 [facility] M[facility].14524 33591 Information not available 07/07/2022 Do You Have A Medical Power Of Car Record Clerk? No MIGRATION.37341 83073 Information not available 07/07/2022 What Was The Date Of Your Most Recent Tobacco Screening? 12/24/2022 [email or web address] Information not available 12/24/2022 Do You Have Any Pets? Yes MIGRATION.95774 59995 Information not available 07/07/2022 What Is Your Relationship Status? Single MIGRATION.57645 83360 Information not available 07/07/2022 Do You Use Your Seat Belt Or Car Seat Routinely? Yes MIGRATION.15214 32770 Information not available 07/07/2022 Do You Have Smoke And Carbon Monoxide Detectors In Your Home? Yes MIGRATION.29562 44730 Information not available 07/07/2022 Are You Passively Exposed To Smoke? Yes MIGRATION.89545 52489 Information not available 07/07/2022 Are There Any Smokers In Your House? Yes MIGRATION.52567 38733 Information not available 07/07/2022 What Types Of Sporting Activities Do You Participate In? None MIGRATION.56555 94382 Information not available 07/07/2022 Do You Use Sunscreen Routinely? No MIGRATION.83367 80172 Information not available 07/07/2022 Has Tobacco Cessation Counseling Been Provided? No Not Needed-ne adrian Smoked MIGRATION.32391 54966 Information not available 07/07/2022 Have You Recently Traveled Abroad? No MIGRATION.19946 64430 Information not available 07/07/2022 Do You Have Any Dietary Restrictions? No MIGRATION.34411 88247 Information not available 07/07/2022 Sex: Female Functional Status Question Answer Note LastModified by Organizat ion Details LastModified Time Do you use any illicit or recreational drugs? No MIGRATION.6436320 026 Information not available 07/07/2022 Do you or have you ever used any other forms of tobacco or nicotine? No MIGRATION.7016942 026 Information not available 07/07/2022 What is your level of alcohol consumption? None MIGRATION.4894738 026 Information not available 07/07/2022 What is your exercise level? Occasional MIGRATION.6743115 026 Information not available 07/07/2022 Mental Status Question Answer Note LastModified by Organizat ion Details LastModified Time Do you feel stressed (tense, restless, nervous, or anxious, or unable to sleep at night)? [id number] MIGRATION.[id number] 6 Information not available 07/07/2022 Family History Relationship Description Onset Age of this Age Resolved Age Notes LastModified by Organization Details LastModified Time Mother Diabetes mellitus MIGRATION.525 [id number] Not available 07/07/2022 15:14:17 Mother Hypertensive disorder MIGRATION.163 [id number] Not available 07/07/2022 15:14:17 Mother Hyperlipidem ia MIGRATION.269 1807665 Not available 07/07/2022 15:14:17 Unspecified Relation Family history of diabetes mellitus matern al side MIGRATION.514 [id number] Not available 07/07/2022 15:14:17 Unspecified Relation Family history of breast cancer MIGRATION.299 [id number] Not available 07/07/2022 15:14:18 Unspecified Relation Malignant neoplasm of cervix uteri matern al great grandm a MIGRATION.352 6137177 Not available 07/07/2022 15:14:18 Unspecified Relation Family history of Depression MIGRATION.559 1919419 Not available 07/07/2022 15:14:18 Father Schizophreni a MIGRATION.794 [id number] Not available 07/07/2022 15:14:18 Medical History Condition Response NERVE DISEASE N BLINDNESS N RHEUMATIC FEVER N KIDNEY STONES N BLADDER PROBLEMS N MRSA N OTHER # 1 Y POLIO N LUNG DISEASE/DISORDER N HISTORY OF DRUG ABUSE N COPD N RADIATION / CHEMOTHERAPY N Other # 2 N BLOOD DISEASES N EAR OR HEARING PROBLEMS N MUMPS N SHINGLES N BOWEL PROBLEMS N DEPRESSION (INCLUDING POST ) Y STROKE/TIA N ULCERS N BENIGN PROSTATIC HYPERPLASIA N MEASLES N HYPOTENSION N MYOCARDIAL INFARCTION N OBESITY N GERD/NAUSEA N ANEURYSM N URINARY/BLADDER/KIDNEY PROBLEMS N CORONARY ARTERY DISEASE (CAD) N ADDICTION CONCERNS N ENDOMETRIOSIS N Impotence N USE OF BLOOD THINNERS N SKIN PROBLEMS N GASTROINTESTINAL DISORDER N PERIPHERAL VASCULAR DISEASE N MUSCLE,JOINT OR BONE PROBLEMS N GASTROINTESTINAL BLEEDING N BLOOD CLOTS N ASTHMA N CATARACTS N ERECTILE DYSFUNCTION N VARICOSITIES N GI PROBLEMS N Low Testosterone N INFERTILITY N AIDS/HIV N CHEMOTHERAPY / RADIATION N LIVER DISEASE N MALE HYPOGONADISM N HYPERTENSION N Deficiency N TOURETTE'S N ANXIETY DISORDER Y BLOOD TRANSFUSION N ANEMIA/BLOOD DISORDER N CHRONIC EAR INFECTIONS N BRONCHITIS N TUBERCULOSIS N GLAUCOMA N FOOT PROBLEM N DIVERTICULITIS N SLEEP APNEA N CHICKENPOX N INFECTIOUS DISEASE N PROSTATE N HEART ARRHYTHMIA N INSOMNIA Y HIGH CHOLESTEROL / HYPERLIPIDEMIA N EYE PROBLEMS N HYPERTHYROIDISM N EDEMA N CHRONIC PAIN SYNDROME N HYPOTHYROIDISM N CONSTIPATION N CAROTID BLOCKAGE N BACK / NECK PROBLEMS N HAVE YOU BEEN HOSPITALIZED OR SEEN IN [facility] ER IN THE PAST YEAR ? N ATHEROSCLEROSIS N BREAST PROBLEMS N DIALYSIS N ECZEMA N OSTEOPOROSIS N ARTHRITIS N APPENDICITIS N DIABETES, TYPE N BAD TEETH N ENT N HEARTBURN / REFLUX N AUTISM SPECTRUM DISORDER (ASD) N HEPATITIS / LIVER DISEASE N GOUT N SLEEP DISORDER N ALZHEIMER'S DISEASE N Brain Problems N HERPES N DEMENTIA N HEADACHES/MIGRAINES N SEIZURES/EPILEPSY N VASCULAR DISEASE N PACEMAKER N Blood Disorder N DIZZINESS N HEART DISEASE/HEART PROBLEMS N KIDNEY DISEASE N MULTIPLE SCLEROSIS N CARDIAC ARRHYTHMIA N CANCER: SPECIFY N ATRIAL FIBRILLATION N Gall Stones N PULMONARY EMBOLISM N AUTOIMMUNE DISEASE N Gynecological HistoryNo gynecological history recorded. Obstetrics History GPAL:G 0 P 0 0 0 0 Immunizations Vaccine Type Date Status Note Provider Nam e and Address Organization Details Recorded Time influenza, unspecified formulation 3 completed JOHN Nichols, [place] - [facility] 01/17/2023 12:59:54 COVID-19, mRNA, LNP-S, PF, 30 mcg/0.3 mL dose 1 completed Not Available [facility] 01/07/2023 22:35:38 COVID-19, mRNA, LNP-S, PF, 30 mcg/0.3 mL dose 1 completed Not Available [facility] 01/07/2023 22:35:38 Past Encounters Encounter ID Performer Location Encounter Start Date Encounter Closed Date Diagnosis/Indication Diagnosis SNOMED-CT Code Diagnosis ICD10 Code Diagnosis IMO Codes Diagnosis Note [id number] Pascual Lamb MD [facility] [place] [address] [facility], [address] [place] [address] 05/13/2021 00:00:00 06/06/2021 13:09:34 [id number] Pascual Lamb MD [facility] Internal Med [facility] [address] [facility] [address] [address] 06/03/2021 00:00:00 06/03/2021 22:44:51 [id number] Pascual Lamb MD S_[facility] Internal Med [facility] [address] [facility] [address] [address] 07/03/2021 00:00:00 07/03/2021 20:59:47 [id number] Pascual Lamb MD S_[facility] Internal Med [facility] [address] [facility] [address] [address] 12/07/2021 00:00:00 12/22/2021 22:24:54 [id number] Pascual Lamb MD S_G Internal Med [facility] [address] [facility] [address] [address] 01/04/2022 00:00:00 01/05/2022 14:38:03 [id number] Pascual Lamb MD [facility] Internal Med [facility] [address] [facility] [address] [address] 02/24/2022 00:00:00 04/06/2022 22:50:02 [id number] Pascual Lamb MD S_G Internal Med [facility] [address] [facility] [address] [address] 03/17/2022 00:00:00 03/18/2022 08:13:18 [id number] Pascual Lamb MD [facility] Internal Med [facility] [address] [facility] [address] [address] 06/16/2022 00:00:00 06/16/2022 22:34:31 [id number] Pascual Lamb MD S_[facility] Internal Med [facility] [address] [place], [place] [address]., [address] [address] 09/02/2022 14:42:32 09/02/2022 15:05:39 Pain of knee region 6606966748 M25.569 [id number] Pascual Lamb MD S_[facility] Internal Med [facility] [address] [facility] [address] [address] 12/24/2022 12:46:59 12/24/2022 13:35:50 Family history of blood coagulation disorder 4104921473 94884 Z83.2 Health Concerns Section Related Observation LastModified by Organization Detai ls LastModified Time None Recorded Concern Status LastModified by Organization Details LastModified Time None Recorded Advance Directives Directive N: Payers Insurance Date Sequence Insurance Name Policy Number Policy Moore Covered Member ID Moore Member ID Guarantor Name 12/22/2022 1 [facility] [id number] Eriberto Schroeder [id number] Vivianalydia Schroeder Notes Date Note Type Note Provider Name and Address Organization Details Recorded Time 09/02/2022 text/html Knee still hurts Pascual Lamb MD [address], [place], [address], [employer] 09/02/2022 21:55:33 12/24/2022 text/html For could be losing health insurance and just found out from her grandmother that a septic tank cleaner recommended that everybody in the family get it evaluated for inheritable blood clotting disorder because of DVTs in the grandmother Pascual Lamb MD [address], [place], [address], [employer] 12/24/2022 15:04:37 OBGyn Episode No OBEpisode recorded.
[2025-02-11 13:48] LABS: Add Urine Microscopic? YES; Appearance Urine Clear (Clear); Glucose Urine UA Negative (Negative); Leukocyte Esterase Ur Trace LEU/UL (Negative); Nitrate Urine Negative (Negative); Non Pathogenic Casts 0-2; Specific Grav Ur 1.015 (1.001-1.035)
[2025-02-11 14:07] LABS: Alanine Aminotransferase 25 U/L (6-35); Albumin Level 4.1 g/dL (3.5-5.1); Alkaline Phosphatase 45 U/L (38-126); Anion Gap 8 mmol/L (4-12); Aspartate Amino Transferase 35 U/L (14-36); Bilirubin,Total 0.3 mg/dL (0.2-1.3); Blood Urea Nitrogen 15 mg/dL (7-17); Calcium 9.2 mg/dL (8.4-10.2); Carbon Dioxide 24 mmol/L (22-30); Chloride 103 mmol/L (98-107); Estimated CRCL calculation 104 ml/min; Estimated Glomerular Filt Rate > 60; Glucose 92 mg/dL (65-110); Potassium 4.2 mmol/L (3.4-5.0); Sodium 135 mmol/L (137-145); Total Protein 7.6 g/dL (6.3-8.2)
[2025-02-11 14:37] VITALS: BP 94/57; PULSE 84; RESP 20; O2SAT 100
[2025-02-11 14:39] VITALS: PULSE 72; O2SAT 100
[2025-02-11 15:33] VITALS: BP 119/81; PULSE 86; RESP 18; O2SAT 97
--- OUTSIDE RECORDS SUMMARY | 2025-02-11 15:57 | XMS_ITS | Clinical Summary ---
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
--- OUTSIDE RECORDS SUMMARY | 2025-02-11 15:57 | XMS_ITS | Clinical Summary ---
Author Organization [facility] Address [address] [place] [address] Care Team Providers Care Insulator Tester Name Role Phone Haresh Pruitt MD [phone] Social History Tobacco Use Types Packs/Day Years [...] this topic Insurance [place] Care Teams Insulator Tester Relationship Specialty Start Date End Date Haresh Pruitt MD [address] [place] [address] [place] [address] PCP - General Family Medicine 02/24/24
[2025-02-15 14:39] LABS: Estimated CRCL calculation 91 ml/min; Estimated Glomerular Filt Rate > 60
== END 2025-02-11 16:13 | disposition home or self-care (01) ==
LOC: ANHED 15:28
PROVIDERS: Nurse Practitioner Family; Emergency Provider Emergency Medicine
DX: M79.661 Pain in right lower leg (principal); R06.00 Dyspnea, unspecified
CPT/HCPCS: 36415; 71046; 71275; 80053; 81001; 81025; 82565; 85025; 93971; 99284; Q9967